=== PATIENT | female | born 2000 | race Caucasian/White ===

== ENCOUNTER 2023-12-04 02:46 | Emergency (ER) | payer OTHER ==
--- OUTSIDE RECORDS SUMMARY | 2023-12-04 02:51 | XMS REPORT | Continuity of Care Document ---
Author Name Unknown Address [address] [facility] [address] [place] [address] [facility] thconnect Address [address] [facility] [address] [place] [address] Care Team Providers Care Locker Operator Name Role Phone PCP, PATIENT DOES NOT HAVE A Primary Care Physic amy Unavailable SUBHASH BEY Attending Clinician Unavailable MAIDA SUBHASH KAYLEE Attending Clinician Unavailable Tarun Canales CRNA Attending Clinician + [phone] Juan Daniel Whitmore MD Attending Clinician [phone] Bernardino Kelly MD Attending Clinician + [phone] Doctor Unassigned, Perrin Attending Clinician U benailSARAH Nogueira Attending Clinician Unavailable Sarah Pennington MD Attending Clinician [phone], [facility] Attending Clinician Unavailable LAMIN ULLOA Attending Clinician Unavailable LAMIN ULLOA Attending Clinician Unavailable Ultrasound, Ang-Mfm Attending Clinician Unavaila SABINE Soni Attending Clinician Unavailable SABINE FERNANDO Attending Clinician Unavailable Sabine Fernando MD Attending Clinician [phone] Zahida Vela Attending Clinician [phone] MAIDA, SUBHASH CAM Admitting Clinician Unavailable Subhash Bey MD Admitting Clinician [phone] SARAH PENNINGTON Admitting Clinician Unavailable Sarah Pennington MD Admitting Clinician [phone] Payers Payer Name Policy Type Policy Number Effective Date Expirati on Date Source [facility] [id number] 2022 00:00:00 [facility] [id number] 2023 00:00:00 2023 00:00:00 Problems Condition Name Condition Details Condition Category Status Onset Date Resolution Date Last Treatment Date Treating Clinician Comments Source 39 weeks gestation of 39 weeks gestation of Disease Active 3-13 00:00: 00 [facility] Maternal care for decelerati ons during Maternal care for decelerati ons during Disease Active 3-13 00:00: 00 [facility] Liveborn infant, of resendiz , born in hospital by delivery Liveborn , of resendiz , born in hospital by delivery Disease Active 3-13 00:00: 00 [facility] Encounter for elective induction of labor Encounter for elective induction of labor Disease Active 3-12 00:00: 00 [facility] Positive GBS test Positive GBS test Disease Active 2-28 00:00: 00 [facility] Uterine size-date discrepanc y in third trimester Uterine size-date discrepanc y in third trimester Disease Active 1-23 00:00: 00 [facility] Excessive weight gain during in third trimester Excessive weight gain during in third trimester Disease Active 1-10 00:00: 00 [facility] Obesity (BMI 30-39.9) Obesity (BMI 30-39.9) Disease Active 2022-04 2-13 00:00: 00 [facility] Encounter for supervisio n of normal first in second trimester Encounter for supervisio n of normal first in second trimester Disease Active 2022-04 1-15 00:00: 00 [facility] High-risk in third trimester High-risk in third trimester Disease Active 2022-04 1-15 00:00: 00 [facility] 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 Disease Active 2022-04 0-19 00:00: 00 [facility] No known active problems No known active problems Disease [facility] Allergies, Adverse Reactions, Alerts Allergy Name Allergy Type Status Severity Reaction(s) Onset Date Inactive Date Treating Clinician Comments Source NO KNOWN ALLERGIE S Drug Class Active [facility] Social History Social Habit Start Date Stop Date Quantity Comments Source ASSERTION 2022-10-23 00:00:00 [facility] History of tobacco use Cigarette Smoker [facility] Exposure to SARS-CoV-2 (event) Not sure [facility] Alcohol intake 2023-08-07 00:00:00 2023-08-07 00:00:00 Ex-drinker (finding) [facility] Alcoholic beverage intake 2023-08-07 00:00:00 2023-08-07 00:00:00 Ex-drinker (finding) [facility] Cigarettes smoked current (pack per day) - Reported 2023-01-14 00:00:00 2023-01-14 00:00:00 [facility] Tobacco use and exposure 2023-01-14 00:00:00 2023-01-14 00:00:00 Smokeless tobacco non-user [facility] History of Social function 2023-01-14 00:00:00 2023-01-14 00:00:00 [facility] Cigarette pack-years 2023-01-14 00:00:00 2023-01-14 00:00:00 [facility] Sex assigned at 2001 00:00:00 2000 00:00:00 [facility] Smoking Status Start Date Stop Date Source Ex-smoker 2023-01-14 00:00:00 2023-01-14 00:00:00 [facility] Tobacco smoking consumption unknown [facility] Medications Ordered Medication Name Filled Medication Name Start Date Stop Date Current Medication? Ordering Clinician Indication Dosage Frequency Signature (SIG) Comments Components Source ibuprofen (IBU) tablet 600 mg 07-11 05:00: 00 Yes 600mg 600 mg, Oral, Q6H ABX, First dose on Sat07/12/23 at 0000, Until Discontinu ed, Routine [facility] 25/iron fum/folic/d voss (-1 ORAL) 07-10 07:42: 48 07-10 00:00 :00 No Take by mouth. [facility] acetaminoph en (TYLENOL) tablet 1,000 mg 07-10 07:00: 00 Yes 1000mg 1,000 mg, Oral, Q8HA1, First dose on Sat07/11/23 at 0200, Until Discontinu ed, Routine [facility] ketorolac (TORADOL) injection 30 mg 07-10 05:00: 00 07-11 04:59 :00 No 30mg 30 mg, Slow IV Push, Q6H ABX, 4 doses, First dose on Alanna 07/11/23 at 0000, Last dose on Sat07/11/23 at 1800, Routine [facility] vitamin w/FA tablet 07-10 00:00: 00 Yes [id number] 1{tbl} Take 1 tablet by mouth in the morning. [facility] docusate 100 mg capsule 07-10 00:00: 00 Yes [id number] 200mg Take 2 capsules by mouth once daily as needed for Constipati on. [facility] ferrous sulfate 325 mg (65 mg iron) tablet 07-10 00:00: 00 Yes [id number] 325mg Take 1 tablet by mouth in the morning. [facility] ibuprofen 600 mg tablet 07-10 00:00: 00 Yes [id number] 600mg Take 1 tablet by mouth every 6 (six) hours as needed (Pain). Take with food or milk. [facility] acetaminoph en (TYLENOL) 325 mg tablet 07-10 00:00: 00 Yes [id number] 650mg Take 2 tablets by mouth every 6 (six) hours as needed for Pain (scale 1-3) or Pain (scale 4-6). [facility] HYDROcodone -acetaminop hen 5-325 mg tablet 07-10 00:00: 00 07-18 04:59 :00 No [id number] 1{tbl} Take 1 tablet by mouth every 6 (six) hours as needed (Pain scale above 4) for up to 7 days. Do not exceed 3 grams of acetaminop hen in 24 hours. Indication s: acute pain [facility] gabapentin 300 mg capsule 07-10 00:00: 00 07-16 04:59 :00 No [id number] 300mg Take 1 capsule by mouth in the morning and 1 capsule at noon and 1 capsule in the evening. Do all this for 5 days. [facility] acetaminoph en (OFIRMEV) IV piggyback 1,000 mg 07-09 22:30: 00 07-09 23:19 :36 No 1000mg 1,000 mg, IV Piggyback, at 400 mL/hr Administer over 15 Minutes, ONCE, 1 dose, On Sat07/10/23 at 1730, Routine
Is the patient strict NPO and unable to tolerate oral medication s? Yes [facility] gabapentin (NEURONTIN) capsule 300 mg 07-09 19:00: 00 Yes 300mg 300 mg, Oral, TID, First dose on Sat07/10/23 at 1400, Until Discontinu ed, Routine [facility] lactated ringers IV infusion 1,000 mL 07-09 16:30: 00 07-09 20:55 :17 No 1000mL at 125 mL/hr, 1,000 mL, IV Infusion, ONCE, 1 dose, On Sat07/10/23 at 1130, Routine [facility] rho(D) immune globulin (RHOGAM) syringe 300 mcg 07-09 16:15: 17 Yes 300ug 300 mcg, Intramuscu lar, ONCE, For 1 dose, Conditiona l, Routine [facility] oxyCODONE immediate release tablet 5 mg 07-09 16:15: 11 Yes 5mg 5 mg, Oral, Q6HPRN, Starting on Sat07/10/23 at 1115, Until Discontinu ed, Routine, Pain (scale 7-10)
F aculty member approving Restricted medication : SUBHASH BEY [facility] diphenhydrA MINE (BENADRYL) injection 25 mg 07-09 16:15: 11 Yes 25mg 25 mg, Slow IV Push, Q6HPRN, Starting on Sat07/10/23 at 1115, Until Discontinu ed, Routine, Itching [facility] diphenhydrA MINE (BENADRYL) tablet 25 mg 07-09 16:15: 11 Yes 25mg 25 mg, Oral, Q6HPRN, Starting on Sat07/10/23 at 1115, Until Discontinu ed, Routine, Sleep, Itching [facility] ondansetron (ZOFRAN (PF)) injection 4 mg 07-09 16:15: 11 Yes 4mg 4 mg, Slow IV Push, Q8HPRN, Starting on Sat07/10/23 at 1115, Until Discontinu ed, Routine, Nausea and Vomiting (N/V) [facility] bisacodyL (DULCOLAX) suppository 10 mg 07-09 16:15: 11 Yes 10mg 10 mg, Rectal, QDAILYPRN, Starting on Sat07/10/23 at 1115, Until Discontinu ed, Routine, Constipati on [facility] simethicone (GAS RELIEF (SIMETHICON E)) chewable tablet 160 mg 07-09 16:15: 11 Yes 160mg 160 mg, Oral, PC+HSPRN, Starting on Sat07/10/23 at 1115, Until Discontinu ed, Routine, Gas [facility] docusate (COLACE) capsule 200 mg 07-09 16:15: 11 Yes 200mg 200 mg, Oral, QDAILYPRN, Starting on Sat07/10/23 at 1115, Until Discontinu ed, Routine, Constipati on [facility] magnesium hydroxide (MILK OF MAGNESIA) 400 mg/5 mL suspension 30 mL 07-09 16:15: 11 Yes 30mL 30 mL, Oral, QDAILYPRN, Starting on Sat07/10/23 at 1115, Until Discontinu ed, Routine, Constipati on [facility] lactated ringers IV infusion 1,000 mL 07-09 16:15: 11 Yes 1000mL at 125 mL/hr, 1,000 mL, IV Infusion, PRN, 1 dose, Starting on Sat07/10/23 at 1115, Until Discontinu ed, Routine [facility] mupirocin (BACTROBAN OINT) 2 % oinintment 07-09 14:45: 00 Yes [facility] acetaminoph en (OFIRMEV) IV piggyback 07-09 14:23: 00 07-09 14:52 :08 No IV Infusion, Administer over 15 Minutes, ONCE INTRA PROCEDURE, Starting on Sat07/10/23 at 0923, Until Discontinu ed, Routine, Intra-op [facility] oxytocin (PITOCIN) 30 units in NS 500 mL IV infusion 07-09 14:02: 00 07-09 14:52 :08 No IV Infusion, CONTINUOUS PRN, Starting on Sat07/10/23 at 0902, Until Discontinu ed, Routine, Intra-op [facility] ondansetron (ZOFRAN (PF)) injection 07-09 13:53: 00 07-09 14:52 :08 No Slow IV Push, ONCE INTRA PROCEDURE, Starting on Sat07/10/23 at 0853, Until Discontinu ed, Routine, Intra-op [facility] morpHINE PF (DURAMORPH- PF) injection 07-09 13:45: 00 07-09 14:52 :08 No Epidural, ONCE INTRA PROCEDURE, Starting on Sat07/10/23 at 0845, Until Discontinu ed, Routine, Intra-op [facility] bupivacaine -dextrose-w ater-pf (MARCAINE SPINAL (PF)) 0.75 % (7.5 mg/mL) injection 07-09 13:45: 00 07-09 14:52 :08 No Intraspina l, ONCE INTRA PROCEDURE, Starting on Sat07/10/23 at 0845, Until Discontinu ed, Routine, Intra-op [facility] PHENYLephri ne 1000 mcg/10 mL in 0.9% NaCl syringe 07-09 13:45: 00 07-09 14:52 :08 No Intravenou s, CONTINUOUS PRN, Starting on Sat07/10/23 at 0845, Until Discontinu ed, Routine, Intra-op [facility] lidocaine 1% (XYLOCAINE) 100 mg/10 mL (1 %) injection 07-09 13:44: 00 07-09 16:20 :32 No Infiltrati on, ONCE INTRA PROCEDURE, Starting on Sat07/10/23 at 0844, Until Sat07/10/23 at 1120, Routine, Intra-op [facility] ceFAZolin (ANCEF) injection 07-09 13:44: 00 07-09 14:52 :08 No IV Piggyback, ONCE INTRA PROCEDURE, Starting on Sat07/10/23 at 0844, Until Discontinu ed, CATE, Intra-op [facility] lactated ringers IV infusion 07-09 13:33: 00 07-09 14:52 :08 No IV Infusion, CONTINUOUS PRN, Starting on Sat07/10/23 at 0833, Until Discontinu ed, Routine, Intra-op [facility] 25/iron fum/folic/d voss (-1 ORAL) 07-09 08:40: 00 Yes Take by mouth. [facility] terbutaline (BRETHINE) injection 0.25 mg 07-09 05:00: 00 07-09 16:15 :16 No .25mg 0.25 mg, Subcutaneo us, PRN - SEE INSTRUCTIO NS, Starting on Sat07/10/23 at 0000, Until Sat07/10/23 at 1115, Routine, Surgery/Pr ocedure [facility] lactated ringers IV infusion 500 mL 07-09 04:31: 48 07-09 16:15 :15 No 500mL at 999 mL/hr, 500 mL, IV Infusion, PRN - SEE INSTRUCTIO NS, Starting on Sat07/09/23 at 2331, Until Sat07/10/23 at 1115, Routine [facility] D5W-LR IV infusion 1,000 mL 07-09 04:31: 48 07-09 16:15 :15 No 1000mL at 1-125 mL/hr, IV Infusion, TITRATE, Starting on Sat07/09/23 at 2331, Until Sat07/10/23 at 1115, Routine [facility] 25/iron fum/folic/d voss (-1 ORAL) 07-09 00:30: 50 Yes Take by mouth. [facility] 25/iron fum/folic/d voss (-1 ORAL) 3 16:53: 04 Yes Take by mouth. [facility] acyclovir 400 mg tablet 06-19 00:00: 00 07-10 00:00 :00 No [id number] 400mg Take 1 tablet by mouth in the morning and 1 tablet at noon and 1 tablet in the evening. Do all this for 20 days. [facility] ergocalcife rol, vitamin D2, (VITAMIN D ORAL) 2022-04 2 10:55: 47 Yes Take by mouth. [facility] ergocalcife rol, vitamin D2, (VITAMIN D ORAL) 2022-04 0 15:44: 07 Yes Take by mouth. [facility] azithromyci n 500 mg tablet 01-16 00:00: 00 01-17 04:59 :00 No 1000mg Take 2 tablets by mouth once now for 1 dose. [facility] 25/iron fum/folic/d voss (-1 ORAL) 9- 10:12: 54 Yes Take by mouth. [facility] No known medications No Un [facility] No known medications No Un antonio [facility] Immunizations Ordered Immunization Name Filled Immunization Name Date Status Comments Source Influenza Virus Vaccine Unknown Completed [facility] Influenza Virus Vaccine Unknown Completed [facility] Influenza Virus Vaccine Unknown Completed [facility] Influenza Virus Vaccine Unknown Completed [facility] Influenza Virus Vaccine Unknown Completed [facility] Influenza Virus Vaccine Unknown Completed [facility] Influenza Virus Vaccine Unknown Completed [facility] TDAP Unknown Completed [facility] Influenza Virus Vaccine Unknown Completed [facility] TDAP Unknown Completed [facility] Influenza Virus Vaccine Unknown Completed [facility] TDAP Unknown Completed [facility] Influenza Virus Vaccine Unknown Completed [facility] TDAP Unknown Completed [facility] Influenza Virus Vaccine Unknown Completed [facility] TDAP Unknown Completed [facility] Influenza Virus Vaccine Unknown Completed [facility] TDAP Unknown Completed [facility] Influenza Virus Vaccine Unknown Completed [facility] TDAP Unknown Completed [facility] Influenza Virus Vaccine Unknown Completed [facility] TDAP Unknown Completed [facility] Influenza Virus Vaccine Unknown Completed [facility] TDAP Unknown Completed [facility] Influenza Virus Vaccine Unknown Completed [facility] TDAP Unknown Completed [facility] Influenza Virus Vaccine Unknown Completed [facility] TDAP Unknown Completed [facility] Influenza Virus Vaccine Unknown Completed [facility] TDAP Unknown Completed [facility] Influenza Virus Vaccine Unknown Completed [facility] TDAP Unknown Completed [facility] Influenza Virus Vaccine Unknown Completed [facility] TDAP Unknown Completed [facility] Influenza Virus Vaccine Unknown Completed [facility] TDAP Unknown Completed [facility] Influenza Virus Vaccine Unknown Completed [facility] TDAP Unknown Completed [facility] Influenza Virus Vaccine Unknown Completed [facility] TDAP Unknown Completed [facility] Influenza Virus Vaccine Unknown Completed [facility] TDAP Unknown Completed [facility] Influenza Virus Vaccine Unknown Completed [facility] TDAP Unknown Completed [facility] Influenza Virus Vaccine Unknown Completed [facility] TDAP Unknown Completed [facility] Influenza Virus Vaccine Unknown Completed [facility] TDAP Unknown Completed [facility] Vital Signs Vital Name Observation Time Observation Value Comments S ource Systolic blood pressure 2023-08-07 16:08:00 109 mm[Hg] [facility] Diastolic blood pressure 2023-08-07 16:08:00 68 mm[Hg] [facility] Heart rate 2023-08-07 16:08:00 79 /min [facility] Body temperature 2023-08-07 16:08:00 36.33 Evelin [facility] Body height 2023-08-07 16:08:00 160 cm [facility] Body weight 2023-08-07 16:08:00 82.555 kg [facility] BMI 2023-08-07 16:08:00 32.24 kg/m2 [facility] Systolic blood pressure 2023-07-11 16:34:00 117 mm[Hg] [facility] Diastolic blood pressure 2023-07-11 16:34:00 65 mm[Hg] [facility] Heart rate 2023-07-11 16:34:00 69 /min [facility] Body temperature 2023-07-11 16:34:00 36.67 Evelin [facility] Respiratory rate 2023-07-11 16:34:00 18 /min [facility] Oxygen saturation in Arterial blood by Pulse oximetry 2023-07-11 16:34:00 99 /min [facility] Body height 2023-07-10 06:49:00 160 cm [facility] Body weight 2023-07-10 06:49:00 91.354 kg [facility] BMI 2023-07-10 06:49:00 35.68 kg/m2 [facility] Heart rate 2023-07-10 12:45:00 110 /min [facility] Oxygen saturation in Arterial blood by Pulse oximetry 2023-07-10 12:45:00 100 /min [facility] Systolic blood pressure 2023-07-10 12:00:00 116 mm[Hg] [facility] Diastolic blood pressure 2023-07-10 12:00:00 71 mm[Hg] [facility] Body temperature 2023-07-10 12:00:00 36.94 Evelin [facility] Respiratory rate 2023-07-10 12:00:00 16 /min [facility] Body height 2023-07-10 06:49:00 160 cm [facility] Body weight 2023-07-10 06:49:00 91.354 kg [facility] BMI 2023-07-10 06:49:00 35.68 kg/m2 [facility] Heart rate 2023-07-06 21:55:00 81 /min [facility] Oxygen saturation in Arterial blood by Pulse oximetry 2023-07-06 21:55:00 97 /min [facility] Body temperature 2023-07-06 21:50:00 36.89 Evelin [facility] Respiratory rate 2023-07-06 21:50:00 14 /min [facility] Systolic blood pressure 2023-07-06 21:00:00 120 mm[Hg] [facility] Diastolic blood pressure 2023-07-06 21:00:00 74 mm[Hg] [facility] Body height 2023-07-06 18:36:00 160 cm [facility] Body weight 2023-07-06 18:36:00 90.311 kg [facility] BMI 2023-07-06 18:36:00 35.27 kg/m2 [facility] Systolic blood pressure 2023-07-03 18:56:00 125 mm[Hg] [facility] Diastolic blood pressure 2023-07-03 18:56:00 76 mm[Hg] [facility] Heart rate 2023-07-03 18:56:00 77 /min [facility] Body temperature 2023-07-03 18:56:00 36.39 Evelin [facility] Respiratory rate 2023-07-03 18:56:00 18 /min [facility] Body height 2023-07-03 18:56:00 162.6 cm [facility] Body weight 2023-07-03 18:56:00 88.451 kg [facility] BMI 2023-07-03 18:56:00 33.47 kg/m2 [facility] Systolic blood pressure 2023-06-26 19:07:00 108 mm[Hg] [facility] Diastolic blood pressure 2023-06-26 19:07:00 69 mm[Hg] [facility] Heart rate 2023-06-26 19:07:00 82 /min [facility] Body temperature 2023-06-26 19:07:00 36.94 Evelin [facility] Respiratory rate 2023-06-26 19:07:00 17 /min [facility] Body height 2023-06-26 19:07:00 162.6 cm [facility] Body weight 2023-06-26 19:07:00 88.814 kg [facility] BMI 2023-06-26 19:07:00 33.61 kg/m2 [facility] Systolic blood pressure 2023-06-19 17:21:00 127 mm[Hg] [facility] Diastolic blood pressure 2023-06-19 17:21:00 77 mm[Hg] [facility] Heart rate 2023-06-19 17:21:00 108 /min [facility] Body temperature 2023-06-19 17:21:00 36.39 Evelin [facility] Respiratory rate 2023-06-19 17:21:00 18 /min [facility] Body height 2023-06-19 17:21:00 162.6 cm [facility] Body weight 2023-06-19 17:21:00 89.359 kg [facility] BMI 2023-06-19 17:21:00 33.81 kg/m2 [facility] Systolic blood pressure 2023-06-04 19:31:00 120 mm[Hg] [facility] Diastolic blood pressure 2023-06-04 19:31:00 70 mm[Hg] [facility] Heart rate 2023-06-04 19:31:00 83 /min [facility] Body temperature 2023-06-04 19:31:00 36.78 Evelin [facility] Respiratory rate 2023-06-04 19:31:00 18 /min [facility] Body height 2023-06-04 19:31:00 162.6 cm [facility] Body weight 2023-06-04 19:31:00 85.458 kg [facility] BMI 2023-06-04 19:31:00 32.34 kg/m2 [facility] Systolic blood pressure 2023-05-21 21:22:00 125 mm[Hg] [facility] Diastolic blood pressure 2023-05-21 21:22:00 75 mm[Hg] [facility] Heart rate 2023-05-21 21:22:00 93 /min [facility] Body temperature 2023-05-21 21:22:00 36.61 Evelin [facility] Body height 2023-05-21 21:22:00 162.6 cm [facility] Body weight 2023-05-21 21:22:00 85.095 kg [facility] BMI 2023-05-21 21:22:00 32.20 kg/m2 [facility] Oxygen saturation in Arterial blood by Pulse oximetry 2023-05-21 21:22:00 99 /min [facility] Systolic blood pressure 2023-05-08 21:24:00 122 mm[Hg] [facility] Diastolic blood pressure 2023-05-08 21:24:00 70 mm[Hg] [facility] [facility] Heart [facility] 2023-05-08 21:24:00 94 /min Unive [facility] Body temperature 2023-05-08 21:24:00 36.78 Evelin [facility] Respiratory rate 2023-05-08 21:24:00 17 /min [facility] Body height 2023-05-08 21:24:00 162.6 cm [facility] Body weight 2023-05-08 21:24:00 83.008 kg [facility] BMI 2023-05-08 21:24:00 31.41 kg/m2 [facility] Systolic blood pressure 2023-04-10 16:51:00 121 mm[Hg] [facility] Diastolic blood pressure 2023-04-10 16:51:00 71 mm[Hg] [facility] Heart rate 2023-04-10 16:51:00 77 /min Unive [facility] Body temperature 2023-04-10 16:51:00 36.39 Evelin [facility] Respiratory rate 2023-04-10 16:51:00 17 /min [facility] Body height 2023-04-10 16:51:00 162.6 cm [facility] Body weight 2023-04-10 16:51:00 80.105 kg [facility] BMI 2023-04-10 16:51:00 30.31 kg/m2 [facility] Systolic blood pressure 2023-03-13 15:28:00 110 mm[Hg] [facility] Diastolic blood pressure 2023-03-13 15:28:00 66 mm[Hg] [facility] Heart rate 2023-03-13 15:28:00 65 /min Unive [facility] Body temperature 2023-03-13 15:28:00 36.61 Evelin [facility] Respiratory rate 2023-03-13 15:28:00 17 /min [facility] Body height 2023-03-13 15:28:00 160 cm [facility] Body weight 2023-03-13 15:28:00 74.571 kg [facility] BMI 2023-03-13 15:28:00 29.12 kg/m2 [facility] Systolic blood pressure 2023-02-14 20:43:00 106 mm[Hg] [facility] Diastolic blood pressure 2023-02-14 20:43:00 66 mm[Hg] [facility] Heart rate 2023-02-14 20:43:00 69 /min Unive [facility] Body temperature 2023-02-14 20:43:00 36.72 Evelin [facility] Body height 2023-02-14 20:43:00 160 cm [facility] Body weight 2023-02-14 20:43:00 70.67 kg [facility] BMI 2023-02-14 20:43:00 27.60 kg/m2 [facility] Systolic blood pressure 2023-01-14 15:12:00 104 mm[Hg] [facility] Diastolic blood pressure 2023-01-14 15:12:00 67 mm[Hg] [facility] Heart rate 2023-01-14 15:12:00 85 /min [facility] Body temperature 2023-01-14 15:12:00 36.67 Evelin [facility] Respiratory rate 2023-01-14 15:12:00 18 /min [facility] Body height 2023-01-14 15:12:00 160 cm [facility] Body weight 2023-01-14 15:12:00 68.13 kg [facility] BMI 2023-01-14 15:12:00 26.61 kg/m2 [facility] Systolic blood pressure 2020-04-01 15:46:00 119 mm[Hg] [facility] Diastolic blood pressure 2020-04-01 15:46:00 86 mm[Hg] [facility] Heart rate 2020-04-01 15:46:00 83 /min [facility] Body temperature 2020-04-01 15:46:00 36.94 Evelin [facility] Respiratory rate 2020-04-01 15:46:00 18 /min [facility] Body weight 2020-04-01 15:46:00 79.379 kg [facility] Oxygen saturation in Arterial blood by Pulse oximetry 2020-04-01 15:46:00 99 /min [facility] Procedures Procedure Date / Time Performed Performing Clinician Source CBC WITH DIFF 2023-07-11 09:23:00 Subhash Bey [facility] CBC WITH DIFF 2023-07-11 09:23:00 Subhash Bey [facility] CENTRAL NEURAXIAL BLOCK 2023-07-10 13:45:00 Tarun Canales [facility] SECTION 2023-07-10 13:19:00 Subhash Bey [facility] SECTION 2023-07-10 13:19:00 Subhash Bey [facility] CBC WITH DIFF 2023-07-10 05:23:00 Subhash Bey [facility] HEPATITIS B SURFACE ANTIGEN 2023-07-10 05:23:00 Subhash Bey [facility] HB ABO GROUPING 2023-07-10 05:23:00 Bey, Subhash [facility] RHO (D) IMMUNE GLOBULIN 2023-07-10 05:[facility] 2023-07-10 05:23[facility]/2 [facility]-AB WITH REFLEX 2023-07-10 05:23:00 Maida [facility] CBC WITH DIFF 2023-07-10 05:23[facility]FACE ANTIGEN 2023-07-10 05:23:00 Maida [facility] HB ABO GROUPING 2023-07-10 05:23:00 Maida [facility] RHO (D) IMMUNE GLOBULIN 2023-07-10 05:23:00 [facility] - RPR 2023-07-10 05:23:00 [facility] 1/2 AG-AB WITH REFLEX 2023-07-10 05:23:00 Subhash Bey [facility] HOSPITAL ADMISSION 2023-07-09 05:01:00 Doctor Un assigned, Perrin [facility] US BIOPHYSICAL PROFILE 2023-07-06 21:10:00 Adum, Sarah Marleen [facility] ASSIGNMENT OF BENEFITS 2023-07-06 18:32:26 Docto r Unassigned, Perrin [facility] CONSENT/REFUSAL FOR DIAGNOSIS AND TREATMENT 2023-07-06 18:30:39 Doctor Unassigned, Perrin [facility] NOTICE OF PRIVACY PRACTICES 2023-07-03 19:32:42 Doctor Unassigned, Perrin [facility] NOTICE OF PRIVACY PRACTICES 2023-07-03 19:32:42 Doctor Unassigned, Perrin [facility] ASSIGNMENT OF BENEFITS 2023-07-03 19:32:27 Docto r Unassigned, Perrin [facility] ASSIGNMENT OF BENEFITS 2023-07-03 19:32:27 Docto r Unassigned, Perrin [facility] POCT URINALYSIS W/O SPECIFIC GRAVITY 2023-07-03 00:00:00 Bey, Subhash Cam [facility] POCT URINALYSIS W/O SPECIFIC GRAVITY 2023-06-26 00:00:00 MaidaSubhash Kaylee [facility] CBC WITH DIFF 2023-06-19 18:01:00 [facility] >14 W[facility] US LIMITED 2023-06-19 17:52:11 MaidaSubhash [facility] POCT URINALYSIS W/O SPECIFIC GRAVITY 2023-06-19 00:00:00 MaidaSubhash [facility] DISABILITY/FMLA 2023-06-18 06:01:00 Doctor Unass igned, Perrin [facility] POCT URINALYSIS W/O SPECIFIC GRAVITY 2023-06-04 19:34:00 MaidaSubhash [facility] SECOND AND THIRD TRIMESTER ULTRASOUND 2023-05-30 19:17:00 MaidaSubhash [facility] POCT URINALYSIS W/O SPECIFIC GRAVITY 2023-05-21 00:00:00 BeySubhash Kaylee [facility] TDAP VACCINE, >11 YRS, IM 2023-05-08 21:25:22 MaidaSubhash [facility] POCT URINALYSIS W/O SPECIFIC GRAVITY 2023-05-08 00:00:00 MaidaSubhash [facility] POCT URINALYSIS W/O SPECIFIC GRAVITY 2023-04-10 00:00:00 MaidaSubhash [facility] POCT URINALYSIS W/O SPECIFIC GRAVITY 2023-03-13 00:00:00 Maida Subhash [facility] SECOND AND THIRD TRIMESTER ULTRASOUND 2023-03-05 16:37:00 MaidaSubhash [facility] POCT URINALYSIS W/O SPECIFIC GRAVITY 2023-02-14 00:00:00 MaidaSubhash [facility] EXTERNAL PROVIDER RECORDS 2023-01-28 05:01:00 Doctor Unassigned, Perrin [facility] <14 WEEKS US LIMITED 2023-01-14 17:44:19 Maida Subhash [facility] ASSIGNMENT OF BENEFITS 2023-01-14 14:56:46 Docto r Unassigned, Perrin [facility] POCT TEST 2023-01-14 00:00:00 BeySubhash [facility] XR FOOT 3+ VW RIGHT 2020-04-01 16:02:30 Myah Moyer [facility] NOTICE OF PRIVACY PRACTICES 2020-04-01 15:39:49 Doctor Unassigned, Perrin [facility] CONSENT/REFUSAL FOR DIAGNOSIS AND TREATMENT 2020-04-01 15:39:26 Doctor Unassigned, Perrin [facility] Encounters Start Date/Time End Date/Time Encounter Type Admission Type Attending [facility] Facility Care Department Encounter ID Source 2023-12-11 09:00:00 2023-12-11 09:00:00 Outpatient R SUBHASH BEY VIEN [facility] [id number] [facility] 2023-10-03 00:00:00 2023-10-03 11:30:15 Telephone Subhash Bey Kaylee [facility] 1.2.840.114 350.1.13.10 4.2.7.2.686 [id number] 134 [id number] [facility] 2023-08-07 11:00:00 2023-08-07 11:17:29 Outpatient R SUBHASH BEY [facility] [id number] [facility] 2023-08-07 11:00:00 2023-08-07 11:17:29 Routine Visit Subhash Bey Kaylee [facility] 1.2.840.114 350.1.13.10 4.2.7.2.686 [id number] 134 [id number] [facility] 2023-07-22 16:15:00 2023-07-22 16:22:21 Outpatient R BEY SUBHASH [facility] [id number] [facility] 2023-07-09 23:30:00 2023-07-11 17:55:00 Inpatient P MAIDA SUBHASH [facility] [id number] [facility] 2023-07-09 23:30:00 2023-07-11 17:55:00 Hospital Encounter Subhash Bey [facility] 1.2.840.114 350.1.13.10 4.2.7.2.686 [id number] [facility] 2023-07-11 00:00:00 2023-07-11 00:00:00 Refill Subhash Bey [facility] 1.2.840.114 350.1.13.10 4.2.7.2.686 [id number] 134 [id number] [facility] 2023-07-10 08:33:00 2023-07-10 09:52:00 Anesthesia Event Tarun Canales David K [facility] 1.2.840.114 350.1.13.10 4.2.7.2.686 [id number] [facility] 2023-07-10 08:15:00 2023-07-10 09:52:00 Surgery Subhash Bey [facility] 1.2.840.114 350.1.13.10 4.2.7.2.686 [id number] [facility] 2023-07-10 01:06:07 2023-07-10 01:06:07 Anesthesia Event Bernardino Kelly [facility] 1.2.840.114 350.1.13.10 4.2.7.2.686 [id number] [facility] 2023-07-09 00:00:00 2023-07-09 00:00:00 Orders Only Doctor Unassigned, Perrin [facility] 1.2.840.114 350.1.13.10 4.2.7.2.686 [id number] [facility] 2023-07-06 12:40:00 2023-07-06 16:11:00 Outpatient X SARAH PENNINGTON [facility] [id number] [facility] 2023-07-06 12:40:00 2023-07-06 16:11:00 Emergency Adum, Sarah Hawley [facility] 1.2.840.114 350.1.13.10 4.2.7.2.686 [id number] [facility] 2023-07-03 13:00:00 2023-07-03 13:21:46 Outpatient R SUBHASH BEY [facility] [id number] [facility] 2023-07-03 13:00:00 2023-07-03 13:21:46 [facility] 1.2.840.114 350.1.13.10 4.2.7.2.686 [id number] 134 [id number] [facility] 2023-06-26 13:15:00 2023-06-26 13:31:09 [facility] [id number] [facility] 2023-06-26 13:15:00 2023-06-26 13:31:09 Routine Visit Subhash Bey [facility] 1.2.840.114 350.1.13.10 4.2.7.2.686 [id number] [facility] 2023-06-19 13:00:00 2023-06-19 13:15:00 Wire Chief Visit 2, Adc Lab [facility]hash [facility] 1.2.840.114 350.1.13.10 4.2.7.2.686 [id number] [facility] 2023-06-19 13:00:00 2023-06-19 13:00:00 Outpatient R SUBHASH BEY [facility] [id number] [facility] 2023-06-19 11:15:00 2023-06-19 11:51:01 Routine [facility] 1.2.840.114 350.1.13.10 4.2.7.2.686 [id number] 134 [id number] [facility] 2023-06-18 00:00:00 2023-06-18 00:00:00 Orders Only Doctor Unassigned, Perrin [facility] 1.2.840.114 350.1.13.10 4.2.7.2.686 [id number] [id number] [facility] 2023-06-12 00:00:00 2023-06-12 00:00:00 Telephone [facility] 1.2.840.114 350.1.13.10 4.2.7.2.686 [id number] [facility] 2023-06-04 13:30:00 2023-06-04 13:42:29 Outpatient R SUBHASH BEY [facility] [id number] [facility] 2023-06-04 13:30:00 2023-06-04 13:42:29 Routine Visit Subhash Bey [facility] 1.2.840.114 350.1.13.10 4.2.7.2.686 [id number] [facility] 2023-05-30 13:00:00 2023-05-30 13:15:37 Outpatient P LAMIN ULLOA COREY [facility] [id number] [facility] 2023-05-30 13:00:00 2023-05-30 13:15:37 Wire Chief Visit Ultrasound, Moshe-Lamin Singer [facility] 1.2.840.114 350.1.13.10 4.2.7.2.686 [id number] [facility] 2023-05-21 15:30:00 2023-05-21 15:39:18 Outpatient R SUBHASH BEY [facility] [id number] [facility] 2023-05-21 15:30:00 2023-05-21 15:39:18 Routine Visit Subhash Bey [facility] 1.2.840.114 350.1.13.10 4.2.7.2.686 [id number] 134 [id number] [facility] 2023-05-08 15:45:00 2023-05-08 15:45:40 Outpatient R SUBHASH BEY [facility] [id number] [facility] 2023-05-08 15:45:00 2023-05-08 15:45:40 [facility] 1.2.840.114 350.1.13.10 4.2.7.2.686 [id number] 134 [id number] [facility] 2023-04-10 11:15:00 2023-04-10 11:15:00 Routine [facility] 1.2.840.114 350.1.13.10 4.2.7.2.686 [id number] 134 [id number] [facility] 2023-04-10 11:15:00 2023-04-10 11:11:37 Outpatient R SUBHASH BEY [facility] [id number] [facility] 2023-04-10 09:45:00 2023-04-10 10:42:40 Wire Chief Visit 2, [facility] 1.2.840.114 350.1.13.10 4.2.7.2.686 [id number] [facility] 2023-03-13 09:30:00 2023-03-13 09:50:47 [facility] [id number] [facility] 2023-03-13 09:30:00 2023-03-13 09:50:47 Routine Visit Subhash Bey [facility] 1.2.840.114 350.1.13.10 4.2.7.2.686 [id number] [facility] 2023-03-05 10:15:00 2023-03-05 10:54:15 Outpatient P S[facility]INE [facility] [id number] [facility] 2023-03-05 10:15:00 2023-03-05 10:54:15 Wire Chief Visit Ultrasound, [facility] 1.2.840.114 350.1.13.10 4.2.7.2.686 [id number] [facility] 2023-02-14 16:15:00 2023-02-14 16:30:00 Wire Chief Visit 2, Adc Lab Subhash Bey [facility] 1.2.840.114 350.1.13.10 4.2.7.2.686 [id number] [facility] 2023-02-14 16:00:00 2023-02-14 16:04:22 Outpatient R SUBHASH BEY [facility] [id number] [facility] 2023-02-14 16:00:00 2023-02-14 16:04:22 Routine Visit Subhash Bey [facility] 1.2.840.114 350.1.13.10 4.2.7.2.686 [id number] [facility] 2023-02-11 11:15:00 2023-02-11 11:15:00 Outpatient R SUBHASH BEY [facility] [id number] [facility] 2023-01-29 00:00:00 2023-01-29 00:00:00 Telephone Subhash Bey [facility] 1.2.840.114 350.1.13.10 4.2.7.2.686 [id number] [facility] 2023-01-28 00:00:00 2023-01-28 00:00:00 Orders Only Doctor Unassigned, Perrin [facility] 1.2.840.114 350.1.13.10 4.2.7.2.686 [id number] [facility] 2023-01-21 00:00:00 2023-01-21 00:00:00 Telephone BeySubhash [facility] 1.2.840.114 350.1.13.10 4.2.7.2.686 [id number] 134 [id number] [facility] 2023-01-16 00:00:00 2023-01-16 00:00:00 Case Management Subhash Bey [facility] 1.2.840.114 350.1.13.10 4.2.7.2.686 [id number] [facility] 2023-01-15 00:00:00 2023-01-15 00:00:00 Telephone Subhash Bey [facility] 1.2.840.114 350.1.13.10 4.2.7.2.686 [id number] 134 [id number] [facility] 2023-01-14 11:15:00 2023-01-14 11:30:00 Wire Chief Visit 2, Adc Lab Maida Subhash [facility] 1.2.840.114 350.1.13.10 4.2.7.2.686 [id number] [facility] 2023-01-14 10:00:00 2023-01-14 10:53:58 Outpatient R SUBHASH BEY [facility] [id number] [facility] 2023-01-14 10:00:00 2023-01-14 10:53:58 [facility] 1.2840.114 350.1.13.10 4.2.7.2.686 [id number] 134 [id number] [facility] 2023-01-14 00:00:00 2023-01-14 00:00:00 Orders Only Doctor Unassigned, Perrin [facility] 1.2840.114 350.1.13.10 4.2.7.2.686 [id number] [facility] 2020-04-01 09:49:00 2020-04-01 11:43:00 Emergency Zahida Foster S [facility] 1.2.840.114 350.1.13.10 4.2.7.2.686 [id number] [facility] 2020-04-01 09:40:00 2020-04-01 09:40:00 Emergency X [facility] ERT [id number] [facility] 2020-04-01 00:00:00 2020-04-01 00:00:00 Orders Only Doctor Unassigned, Perrin [facility] 1.2840.114 350.1.13.10 4.2.7.2.686 [id number] [facility] Results Test Description Test Time Test Comments Results Result Co mments Source [facility] I[facility] [id number] 16:55:10* Test Item Value Reference Range Interpretation Comme nts RHIG CANDIDATE? (test code = 5188) No- see comment Patient is not a candidate for RhIg- Patient is Rh Positive.Performed at [facility] Laboratory Services - ADC Blood [address] [place] [address]Ssmy Free: [phone] No. [id number] [facility] [id number] 13:45:00 Tarun Canales CRNA ? ? 07/10/2023 ?9:09 AM Central Neuraxial Block Date/Time: 07/10/2023 8:45 AMPerformed by: Tarun Canales CRNAAuthorized by: Juan Daniel Whitmore MD ?Patient Location: ORReason for Block: OB request, Patient request and Surgical anesthesiaStaff: ?Anesthesiologist: Juan Daniel Whitmore MD ?Resident/ELECTORATE OFFICER: Conchita Armstrong CRNA ?Performed by: anesthesiologist and resident/CRNAPreanesthetic Checklist: patient identified, risks and benefits explained, monitors and equipment checked,timeout performed, pre-op evaluation, anesthesia consent, IV checked, surgical consent, site marked, ob/surgical consent approval and ob/surgical consent verifiedProcedure: ?Type of Neuraxial: SingleShot and Spinal ? Sterility Prep cap, drape, gloves, gown, hand hygiene and mask ? ?Sedation Level no sedation ?Prep: Betadine and patient draped ? ?Monitoring: heart rate, eligibility technician / EKG, continuous pulse ox, heart rate / toco and NIBP ?Location: lumbar (1-5) ?Lumbar: L1-L2 ?Approach:midline ? ?Technique: single shot ?Guidance with: landmark technique}Epidural/Spinal Tatums and/orCatheter: ?Epidural/Spinal Kit: BBraun ?Needle Type: Khadar ?Needle Gauge: 25 G ?Needle Length: 3.5 in (8.89 cm) ?Needle Insertion Depth: 5 ?Catheter Type: none ?Number of Attempts: 1 ?Test Dose: no test doseAssessment: ?Sensory Level: above T10 ?Thoracic: T10 ?Block Outcome: successful block ? ?P rocedure Assessment: patient tolerated procedure well with no complicationsNotes: ? Smooth and atraumatic, (+) Local, (+) [facility] Surface [id number] 10:53:49* Test Item Value Reference Range Interpretation Comme nts HBsAg Semi-Quantitative (darryl t code = 5195-3) 0.05 Negative [facility] B Surface [id number] 10:53:49 * Test Item Value Reference Range Interpretation Comme nts HBsAg Semi-Quantitative (darryl t code = 5195-3) 0.[address] [facility] 1/2 Ag-Ab with [id number] 08:47:14* Test Item Value Reference Range Interpretation Comme nts HIV Semi-quantitative (test code = 55921-6) 0.12 Negative CHITRA (test code = CHITRA) Non-reactive for HIV-1 antigen and HIV-1/HIV-2 antibodies. ?No laboratory evidence of HIV infection. ?Repeat in 2-4 weeks if acute HIV infection is suspected. [facility] 1/2 Ag-Ab with [id number] 08:47:14* Test Item Value Reference Range Interpretation Comme nts HIV Semi-quantitative (test code = 89218-6) 0.12 Negative CHITRA (test code = CHITRA) Non-reactive for HIV-1 antigen and HIV-1/HIV-2 antibodies. ?No laboratory evidence of HIV infection. ?Repeat in 2-4 weeks if acute HIV infection is suspected. [facility] OR PASTOR ONLY - [id number] 06:24:08* Test Item Value Reference Range Interpretation Comme nts RPR (Qualitative) (test code = 13840-0) Nonreactive Nonreactive Lab Interpretation (test cod e = 76788-8) Normal [facility] OR PASTOR ONLY - [id number] 06:24:08* Test Item Value Reference Range Interpretation Comme nts RPR (Qualitative) (test code = 02880-7) Nonreactive Nonreactive Lab Interpretation (test cod e = 47521-2) Normal [facility] with [id number] 06:05:00* Test Item Value Reference Range Interpretation Comme nts WBC (test code = 6690-2) 9.47 4.30-11.10 RBC (test code = 789-8) 4.29 3.93-5.25 HGB (test code = 718-7) 13.1 g/dL 11.6-15.0 HCT (test code = 4544-3) 39.9 % 35.7-45.2 MCV (test code = 787-2) 93.0 fL 80.6-95.5 MCH (test code = 785-6) 30.5 pg 25.9-32.8 MCHC (test code = 786-4) 32.8 g/dL 31.6-35.1 RDW-SD (test code = 06811-7) 44.8 fL 39.0-49.9 RDW-CV (test code = 788-0) 13.2 % 12.0-15.5 PLT (test code = 777-3) 221 166-358 MPV (test code = 77488-0) 12.0 fL 9.5-12.9 NRBC/100 WBC (test code = 5214671546) 0.0 0.0-10.0 NRBC x10^3 (test code = 8885771886) See_Comment [Automated me ssage] The system which generated this result transmitted reference range: 10*3/?L. The reference range was not used to interpret this result as normal/abnormal. GRAN MAT (NEUT) % (test code = 770-8) 64.0 % IMM GRAN % (test code = 3823445998) 0.60 % LYMPH % (test code = 736-9) 24.5 % MONO % (test code = 5905-5) 9.7 % EOS % (test code = 713-8) 1.0 % BASO % (test code = 706-2) 0.2 % GRAN MAT x10^3(ANC) (test code = 3080985889) 6.06 10*3/uL 1.88-7.09 IMM GRAN x10^3 (test code = 0582118990) 0.06 10*3/uL 0.00-0.06 LYMPH x10^3 (test code = 731-0) 2.32 10*3/uL 1.32-3.29 MONO x10^3 (test code = 742-7) 0.92 10*3/uL 0.33-0.92 EOS x10^3 (test code = 711-2) 0.09 10*3/uL 0.03-0.39 BASO x10^3 (test code = 704-7) 0.01-0.07 [facility] with [id number] 06:05:00* Test Item Value Reference Range Interpretation Comme nts WBC (test code = 6690-2) 9.47 4.30-11.10 RBC (test code = 789-8) 4.29 3.93-5.25 HGB (test code = 718-7) 13.1 g/dL 11.6-15.0 HCT (test code = 4544-3) 39.9 % 35.7-45.2 MCV (test code = 787-2) 93.0 fL 80.6-95.5 MCH (test code = 785-6) 30.5 pg 25.9-32.8 MCHC (test code = 786-4) 32.8 g/dL 31.6-35.1 RDW-SD (test code = 99477-4) 44.8 fL 39.0-49.9 RDW-CV (test code = 788-0) 13.2 % 12.0-15.5 PLT (test code = 777-3) 221 166-358 MPV (test code = 33105-2) 12.0 fL 9.5-12.9 NRBC/100 WBC (test code = 0509344938) 0.0 0.0-10.0 NRBC x10^3 (test code = 6848955236) See_Comment [Automated me ssage] The system which generated this result transmitted reference range: 10*3/?L. The reference range was not used to interpret this result as normal/abnormal. GRAN MAT (NEUT) % (test code = 770-8) 64.0 % IMM GRAN % (test code = 8476019649) 0.60 % LYMPH % (test code = 736-9) 24.5 % MONO % (test code = 5905-5) 9.7 % EOS % (test code = 713-8) 1.0 % BASO % (test code = 706-2) 0.2 % GRAN MAT x10^3(ANC) (test code = 7008824128) 6.06 10*3/uL 1.88-7.09 IMM GRAN x10^3 (test code = 9838658915) 0.06 10*3/uL 0.00-0.06 LYMPH x10^3 (test code = 731-0) 2.32 10*3/uL 1.32-3.29 MONO x10^3 (test code = 742-7) 0.92 10*3/uL 0.33-0.92 EOS x10^3 (test code = 711-2) 0.09 10*3/uL 0.03-0.39 BASO x10^3 (test code = 704-7) 0.01-0.07 [facility] [id number] 06:00:00 * Test Item Value Reference Range Interpretation Comme nts ABO & RH (test code = 20) A POSITIVE IAT (test code = 1185) Negative [facility] [id number] 06:00:00 * Test Item Value Reference Range Interpretation Comme nts ABO & RH (test code = 20) A POSITIVE IAT (test code = 1185) Negative [facility] [id number] 21:41:54Exam: US BIOPHYSICAL PROFILE Indication: Decreased movement ? Comparison: None. RL: [id number] Ordering Clinician: SARAH PENNINGTON Technique: Transabdominal pelvic ultrasound imaging was performed. Technical Quality: Adequate Discussion:The biophysical profile is 8 out of 8 with normal movement, tone, andbreathing.The amniotic fluid index is normal at 20.3 cm. Cephalic presentationAnterior fundal placenta.[facility] [id number] 19:07:00* Test Item Value Reference Range Interpretation Comme nts POCT PH U (test code = 3254) n/a 5-8 POCT U LEUK EST (test code = 3263) n/a Negative - N egative POCT U NIT (test code = 3262) n/a Negative - Negati ve POCT U PROT (test code = 3259) neg Negative - Negat jennifer POCT U GLU (test code = 3256) neg Negative - Negati ve POCT U KETONE (test code = 3258) n/a Negative - Neg ative POCT U BLD (test code = 3257) n/a Negative - Negati ve [facility]o Specific [id number] 19:07:00* Test Item Value Reference Range Interpretation Comme nts POCT PH U (test code = 3254) n/a 5-8 POCT U LEUK EST (test code = 3263) n/a Negative - N egative POCT U NIT (test code = 3262) n/a Negative - Negati ve POCT U PROT (test code = 3259) trace Negative - Negat jennifer POCT U GLU (test code = 3256) 1000 Negative - Negati ve POCT U KETONE (test code = 3258) n/a Negative - Neg ative POCT U BLD (test code = 3257) n/a Negative - Negati ve [facility] Urinalysis w/o Specific [id number] 17:22:00* Test Item Value Reference Range Interpretation Comme nts POCT PH U (test code = 3254) n/a 5-8 POCT U LEUK EST (test code = 3263) n/a Negative - Negative POCT U NIT (test code = 3262) n/a Negative - Negati ve POCT U PROT (test code = 3259) Negative Negative - Negat jennifer POCT U GLU (test code = 3256) 250 Negative - Negati ve POCT U KETONE (test code = 3258) n/a Negative - Neg ative POCT U BLD (test code = 3257) n/a Negative - Negati ve [facility] Urinalysis w/o Specific [id number] 19:34:00* Test Item Value Reference Range Interpretation Comme nts POCT PH U (test code = 3254) na 5-8 POCT U LEUK EST (test code = 3263) na Negative - Negative POCT U NIT (test code = 3262) na Negative - Negative POCT U PROT (test code = 3259) negative Negative - Negative POCT U GLU (test code = 3256) 50 Negative - Negative POCT U KETONE (test code = 3258) negative Negative - Negative POCT U BLD (test code = 3257) negative Negative - Negative CHITRA (test code = CHITRA) accurate developme nt and interpretation of all internal controls Lab Interpretation (test code = 02681-7) Abnormal [facility] Urinalysis w/o Specific [id number] 21:20:00* Test Item Value Reference Range Interpretation Comme nts POCT PH U (test code = 3254) n/a 5-8 POCT U LEUK EST (test code = 3263) n/a Negative - Negative POCT U NIT (test code = 3262) n/a Negative - Negati ve POCT U PROT (test code = 3259) negative Negative - Negat jennifer POCT U GLU (test code = 3256) 100 Negative - Negati ve POCT U KETONE (test code = 3258) n/a Negative - Neg ative POCT U BLD (test code = 3257) n/a Negative - Negati ve [facility] Urinalysis w/o Specific [id number] 21:22:00* Test Item Value Reference Range Interpretation Comme nts POCT PH U (test code = 3254) n/a 5-8 POCT U LEUK EST (test code = 3263) n/a Negative - Negative POCT U NIT (test code = 3262) n/a Negative - Negati ve POCT U PROT (test code = 3259) negative Negative - Negat jennifer POCT U GLU (test code = 3256) 250 Negative - Negati ve POCT U KETONE (test code = 3258) n/a Negative - Neg ative POCT U BLD (test code = 3257) n/a Negative - Negati ve [facility] Urinalysis w/o Specific [id number] 16:48:00* Test Item Value Reference Range Interpretation Comme nts POCT PH U (test code = 3254) n/a 5-8 POCT U LEUK EST (test code = 3263) n/a Negative - Negative POCT U NIT (test code = 3262) n/a Negative - Negati ve POCT U PROT (test code = 3259) negative Negative - Negat jennifer POCT U GLU (test code = 3256) 100 Negative - Negati ve POCT U KETONE (test code = 3258) n/a Negative - Neg ative POCT U BLD (test code = 3257) n/a Negative - Negati ve [facility] URINALYSIS W/O SPECIFIC [id number] 15:26:00* Test Item Value Reference Range Interpretation Comme nts POCT PH U (test code = 3254) n/a 5-8 POCT U LEUK EST (test code = 3263) n/a Negative - Negative POCT U NIT (test code = 3262) n/a Negative - Negati ve POCT U PROT (test code = 3259) negative Negative - Negat jennifer POCT U GLU (test code = 3256) normal Negative - Negati ve POCT U KETONE (test code = 3258) n/a Negative - Neg ative POCT U BLD (test code = 3257) n/a Negative - Negati ve [facility] W/O SPECIFIC [id number] 20:41:00* Test Item Value Reference Range Interpretation Comme nts POCT PH U (test code = 3254) n/a 5-8 POCT U LEUK EST (test code = 3263) n/a Negative - Negative POCT U NIT (test code = 3262) n/a Negative - Negati ve POCT U PROT (test code = 3259) Negative Negative - Negat jennifer POCT U GLU (test code = 3256) Normal Negative - Negati ve POCT U KETONE (test code = 3258) n/a Negative - Neg ative POCT U BLD (test code = 3257) n/a Negative - Negati ve [facility] [id number] 15:13:00* Test Item Value Reference Range Interpretation Comme nts POCT PREG (test code = 1605) Positive On board controls acceptable with C Line (test code = 3574) Yes POCT PREG LOT # (test code = 3575) POCT PREG TEST DATE ( test code = 3576) [facility] [id number] 16:54:08Second toe fracture. Preliminary Report Dictated by Resident: Earnestine Villafana I, Berry Wright MD., have reviewed this study and agree with the abovereport.EXAM: XR FOOT 3+ VW RIGHT HISTORY: injury COMPARISON: None FINDINGS: Radiographs of the right foot a spiral, nondisplaced fracture of the mid D3nujzosk of the second toe. There is moderate overlying soft tissueswelling. The joint spaces are main tained. [facility], Radiant Results Inft User - 04/01/2020 10:55 AM CSTEXAM: XR FOOT 3+ VW RIGHTHISTORY: injury COMPARISON: NoneFINDINGS:Radiographs of the right foot a spiral, nondisplaced fracture of themid R9zluhlml of the second toe. There is moderate overlying soft tissueswelling. The joint spaces are maintained.IMPRESSIONSecond toe fracture.Preliminary Report Dictated by Resident: Earnestine Pham,Berry Wright MD., have reviewed this study and agree with the abovereport.[facility] History and Physical Notes Date/Time Note Provider Source 2023-07-10 07:25:18 TRIAGE HISTORY & PHYSICAL IDENTIFYING DATA Nabor Darden is 23 year old, /White, 39w1d, female with ALTAGRACIA 07/16/2023, Date entered prior to episode creation. : 2000 Primary Care Physician: PATIENT DOES NOT HAVE A PCP CHIEF COMPLAINT Induction at 39 wks HISTORY OF PRESENT ILLNESS Naobr Darden is a 23 year old female @ 39w1d +FM. No VB, LOF, or CTX. No pre-eclampsia sx or other complaints. PAST OBSTETRIC HISTORY OB History Para Term AB Living 2 1 SAB IAB Ectopic Multiple Live Births 1 # Outcome Date GA Lbr Maikel/2nd Weight Sex Delivery Anes PTL Lv 2 Current 1 Ectopic PAST MEDICAL HISTORY Problem list: Patient Active Problem List Diagnosis Date Noted 39 weeks gestation of 07/10/2023 Maternal care for decelerations during 07/10/2023 Encounter for elective induction of labor 07/09/2023 Positive GBS test 06/26/2023 Excessive weight gain during in third trimester 05/08/2023 Obesity (BMI 30-39.9) 04/10/2023 High-risk in third trimester 03/13/2023 Positive test for herpes simplex virus (HSV) antibody 02/14/2023 Operations: Past Surgical History: Procedure Laterality Date SPLIT THICKNESS SKIN GRAFT HARVEST AND PLACEMENT Left 2012 left arm skin graft Past Medical History: Diagnosis Date Congenital deformity of left upper extremity CURRENT HEALTH STATUS Medications: Current Facility-Administered Medications Medication Dose Route Frequency Last Rate Last Admin carboprost (HEMABATE) injection 250 mcg 250 mcg Intramuscular Q2HPRN D5W-LR IV infusion 1,000 mL 1,000 mL IV Infusion TITRATE 125 mL/hr at 07/10/23 011 1,000 mL at 07/10/23 011 FENTanyl PF (SUBLIMAZE (PF)) injection 100 mcg 100 mcg Slow IV Push Q1HPRN lactated ringers IV infusion 500 mL 500 mL IV Infusion PRN - SEE INSTRUCTIONS 999 mL/hr at 07/10/23 0050 500 mL at 07/10/23 0050 lidocaine 1% (PF) (XYLOCAINE) injection 0.3 mL 0.3 mL Infiltration PRN - SEE INSTRUCTIONS lidocaine 1% (XYLOCAINE) 10 mg/mL (1 %) injection 50 mL 50 mL Infiltration PRN - SEE INSTRUCTIONS methylergonovine (METHERGINE) injection 0.2 mg 0.2 mg Intramuscular Q4HPRN misoprostol (CYTOTEC) quarter-tablet 25 mcg 25 mcg Vaginal Q4H misoprostol (CYTOTEC) quarter-tablet 25 mcg 25 mcg Oral ONCE miSOPROStoL (CYTOTEC) tablet 200 mcg 200 mcg Rectal PRN oxytocin (PITOCIN) 30 units in NS 500 mL IV infusion 600 mL/hr IV Infusion PRN penicillin g potassium 5 Million Units in NaCl 0.9% (NS) 100 mL MINI-BAG 5 Million Units IV Piggyback ONCE Held at 07/09/23 2345 Followed by penicillin GK 3 million units in NS 50 mL IV infusion (CNR) 3 Million Units IV Piggyback Q4H ABX proMETHazine (PHENERGAN) 25 mg in NS 50 mL IV piggyback (CNR) 25 mg IV Piggyback Q4HPRN sodium citrate-citric acid (BICITRA) 500-334 mg/5 mL solution 30 mL 30 mL Oral PRE-PROCEDURE ONCE terbutaline (BRETHINE) injection 0.25 mg 0.25 mg Subcutaneous PRN - SEE INSTRUCTIONS 0.25 mg at 07/10/23 0007 tranexamic acid (CYKLOKAPRON) 1,000 mg in NaCl 0.9% (NS) 250 mL piggyback 1,000 mg IV Piggyback PRN Allergies and drug reactions: Patient has no known allergies. HOME MEDICATIONS Medications Prior to Admission Medication Sig Dispense Refill Last Dose ergocalciferol, vitamin D2, (VITAMIN D ORAL) Take by mouth. 07/09/2023 25/iron fum/folic/dha (-1 ORAL) Take by mouth. 07/09/2023 [] acyclovir 400 mg tablet Take 1 tablet by mouth in the morning and 1 tablet at noon and 1 tablet in the evening. Do all this for 20 days. 60 tablet 0 07/09/2023 SOCIAL HISTORY Tobacco History: Social History Tobacco Use Smoking Status Former Packs/day: .25 Types: Cigarettes Start date: 2015 Passive exposure: Never Smokeless Tobacco Never Drug History: Social History Substance and Sexual Activity Drug Use Not Currently Types: Marijuana Comment: stopped once she found out she was Alcohol History: Social History Substance and Sexual Activity Alcohol Use Not Currently FAMILY HISTORY No family history on file. REVIEW OF SYSTEMS General: negative Constitutional: negative Eyes: negative ENT/Mouth: negative Cardiovascular: negative Respiratory: negative Gastrointestinal:negative Genitourinary: negative Musculoskeletal: negative Skin/breast: negative Neurological: negative Psychiatric: negative Endocrine: negative Hemat/Lymph: negative Allergic/Immuno:none VITAL SIGNS BP: (123-138)/(62-84) Temp: [36.8 ?C (98.2 ?F)] Temp source: Oral (07/09 0028) Pulse: [97-123] Resp: [16] SpO2: [98 %-99 %] Height: [160 cm (5' 3")] Weight: [91.4 kg (201 lb 6.4 oz)] BMI (calculated): [35.68] PHYSICAL EXAMINATIONS Gen: alert and oriented, well appearing, no distress CV: RRR, normal S1/S2, no m/r/g Resp: normal work of breathing, lungs CTAB Abd: gravid, soft, NTTP Ext: no calf tenderness or edema : SVE ft/th/high REVIEW OF LABORATORY, PATHOLOGY, AND RADIOLOGY DATA Lab results: Type & Screen HIV Hep B Syphilis Chlamydia ABO & RH Date Value Ref Range Status 07/10/2023 A POSITIVE Final No results found for: "HIVMULTIPLEX" No components found for: "HBSHBSAG" No results found for: "SYPIGG" C. trachomatis Nucleic Acid Date Value Ref Range Status 06/19/2023 Negative Negative Final IAT Date Value Ref Range Status 07/10/2023 Negative Final Varicella Rubella Glucose Group B Strep CBC VZV IgG antibody Date Value Ref Range Status 01/14/2023 Positive Negative Final Rubella screen IgG Date Value Ref Range Status 01/14/2023 Positive Negative Final GLUC 1 HR Date Value Ref Range Status 04/10/2023 102 (L) 120 - 170 mg/dL Final No results found for: "CGBS" HGB Date Value Ref Range Status 07/10/2023 13.1 11.6 - 15.0 g/dL Final HCT Date Value Ref Range Status 07/10/2023 39.9 35.7 - 45.2 % Final PLT Date Value Ref Range Status 07/10/2023 221 166 - 358 10*3/?L Final Active Hospital Problems Diagnosis Date Noted 39 weeks gestation of 07/10/2023 Maternal care for decelerations during 07/10/2023 Encounter for elective induction of labor 07/09/2023 Positive GBS test 06/26/2023 Excessive weight gain during in third trimester 05/08/2023 Obesity (BMI 30-39.9) 04/10/2023 High-risk in third trimester 03/13/2023 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 Present on Admission: Encounter for elective induction of labor Excessive weight gain during in third trimester High-risk in third trimester Obesity (BMI 30-39.9) Positive GBS test Positive test for herpes simplex virus (HSV) antibody ASSESSMENT AND PLAN Nabor Darden is a 23 year old female @ 39w1d here for an elective induction. deceleration - Patient on monitor at 11:44 pm. Patient had a prolonged decel from baseline of 145 down to 90s x 7-9 minutes. Received terb and IVF bolus. Another subtle decel from baseline 130s down to 120s for 2.5 minutes. Intermittent variable decels noted. - Discussed findings with patient and FOB. SVE ft/th/high. Given remote from delivery and Cat II strip, recommend primary CD and not to proceed with induction. Risks/benefits discussed and patient and FOB agreed with proceeding with CD. Body mass index is 35.68 kg/m?. PVT of Dr. Bey, please see OB Summary for more details Subhash Bey MD 07/10/2023 7:[address] Bey, please see OB Summary for more details Subhash Bey MD 07/10/2023 7:49 AM [facility] - [facility] Procedure Notes Date/Time Note Provider Source 2023-07-10 09:06:37 Associated Order(s): Central Neuraxial Block Central Neuraxial Block Date/Time: 07/10/2023 8:45 AM Performed by: Tarun Canales CRNA Authorized by: Juan Daniel Whitmore MD Patient Location: OR Reason for Block: OB request, Patient request and Surgical anesthesia Staff: Anesthesiologist: Juan Daniel Whitmore MD Resident/ELECTORATE OFFICER: Conchita Armstrong CRNA Performed by: anesthesiologist and resident/ELECTORATE OFFICER Preanesthetic Checklist: patient identified, risks and benefits explained, monitors and equipment checked, timeout performed, pre-op evaluation, anesthesia consent, IV checked, surgical consent, site marked, ob/surgical consent approval and ob/surgical consent verified Procedure: Type of Neuraxial: Single Shot and Spinal Sterility Prep cap, drape, gloves, gown, hand hygiene and mask Sedation Level no sedation Prep: Betadine and patient draped Monitoring: heart rate, eligibility technician / EKG, continuous pulse ox, heart rate / toco and NIBP Location: lumbar (1-5) Lumbar: L1-L2 Approach: midline Technique: single shot Guidance with: landmark technique} Epidural/Spinal Tatums and/or Catheter: Epidural/Spinal Kit: Anthony Needle Type: Khadar Needle Gauge: 25 G Needle Length: 3.5 in (8.89 cm) Needle Insertion Depth: 5 Catheter Type: none Number of Attempts: 1 Test Dose: no test dose Assessment: Sensory Level: above T10 Thoracic: T10 Block Outcome: successful block Procedure Assessment: patient tolerated procedure well with no complications Notes: Smooth and atraumatic, (+) Local, (+) STF NACR-NURSE RADIO ELECTRONICS TECHNICIAN,CERTIFIED REGISTERED NURSE RADIO ELECTRONICS TECHNICIAN [facility] Notes Date/Time Note Provider Source 2023-10-03 11:27:47 Return to work forms received via fax. Completed and faxed back. Walker Sy RN 10/03/2023 11:28 AM Walker Sy RN [facility] 2023-07-11 10:15:00 This note was copied from a baby's chart. Evaluation Situation Follow up visit Background Baby boy is 1 days old, born weighing 3470g, and has lost -6.05% of weight. Gestational Age: 39w1d at FEEDING STATUS Exclusively MATERNAL STATUS Hand expressing Assessment & Recommendation Mom denies problems with or latching so far. Baby in the nursery for circumcision. Mom was encouraged to continue on demand when feeding cues are observed. We discussed hand expression and signs of mastitis. education provided. All questions answered. Mom does not have any other questions or concerns at this time. Mom instructed on how to contact Commissioner Of Internal Revenue for assistance with feedings or to answer questions while in the hospital. Mom verbalized understanding. Assessment (most recent) Assessment - 07/11/23 1015 General Information Visit Initial Mom's age (years) 23 years Gestational age 39 weeks 1 Parity 1 Living Children 1 Feeding plan Breast Breastfeed previously No plans As long as possible Delivery method Reason for non reassusring status Infant Oral Assessment Oral assessment No changes from previous assessment Date of 07/10/23 Time of 0901 Infant location Mother Baby Unit Breast Assessment Breast Assessment No change from previous assessment Nipple & Areola Assessment Left Areola Pliable Right Areola Pliable Left Nipple Colostrum visible;Everted Right Nipple Colostrum visible;Everted Literature Resources Resources Understanding Mother and Baby Care Education Hand expression;Benefits of breast massage and hand expression;Engorgement signs and treatment;Risks of mastitis and signs, seek medical attention immediately;How to obtain pump for after discharge Handouts given [place] Commissioner [employer] Observation Reported Position right side Football; latched effectively Mother demonstrated teach back of Breast massage and hand expression Follow up Mom will call staff Recommended Feeding Plan Recommended feeding plan On-demand , 8-12 times in 24 hours not to exceed 6 hours between feeds;Frequent jidu-bp-[id number] time with parents OTHER $ SERVICES Follow-up MARILUZ Joy, RN, IBCLC Perico Silva RN [facility] 2023-07-10 19:29:58 Problem: Pain Goal: Control of pain at or below patient's documented comfort goal Outcome: Progressing as expected Goal: Reduction in pain sensation Outcome: Progressing as expected Problem: Complications of preeclampsia/eclampsia (risk or actual) Goal: Absence of seizure activity Outcome: Progressing as expected Goal: Absence of signs and symptoms of preeclampsia Outcome: Progressing as expected Problem: Complications of hemorrhage (risk or actual) Goal: Absence of active bleeding Outcome: Progressing as expected Goal: Absence of complications Outcome: Progressing as expected Naomi Villanueva RN [facility] 2023-07-10 18:52:32 Delivery Date: 07/10/2023 Delivery Time: 9:01 AM DELIVERY BY SECTION Date of Service: : 07/10/2023 at 9:01 AM Admitted for: primary CD due to non-reassuring FHT (intermittent Cat II strip) remote from vaginal delivery, Primary Lower uterine tranverse section with no extension, no BTL, Pfannenstiel, Closed with suture, EBL 500 cc, No complications, Findings: nuchal cord x 1 Delivery Summary Sex: male Weight: 3470 g 1 Minute 5 Minute 10 Minute Totals: 9 9 Primary Indication: Nabor Darden is a 23 year old female @ 39w1d presented for elective induction. Induction was not started due to Cat II strip. SVE fingertip. Decision was made to proceed with primary CD due to non-reassuring FHT remote from delivery. The patient was taken to the operating room for a primary section due to: Nonreassuring Conditon - at 39w1d weeks. Procedures: Primary Lower uterine tranverse section with no extension Specimens Removed: Placenta Surgeon: Subhash Bey MD Report: Prophylactic antibiotic, Ancef was given before patient was taken to OR. After arrival to the operating room patient was placed in the supine position with left lateral tilt after administration of spinal anesthesia. Laparotomy A pfannenstiel incision was made through the anterior abdominal wall with #10 scalpel. The incision was extended sharply with the #10 scalpel through the subcutaneous tissue to the level of fascia. The fascia was entered sharply with a #10 scalpel (Pfannenstiel) in the midline and extended. The rectus muscles were in the midline bluntly with digits. The peritoneum was then entered bluntly. The peritoneal incision was then extended superiorly and inferiorly under direct visualization with care being taken to avoid bladder and bowel. No adhesions were noted. The peritoneal incision was enlarged bluntly by lateral traction from the surgeon's and admissions assistant's hand. Delivery A bladder flap was developed by grasping with [place] Citizen forcep and enter with Metzenbaun scissor. Then sharp and blunt dissection with Metzenbaum scissor and fingers were performed. A low transverse hysterotomy was made then with #10 scalpel and extended laterally and cephalad with fingers in a low transverse fashion with Manu Gomez technique with care being taken to avoid injury to the fetus. The amniotic (membranes) were then entered with spontaneous rupture of membrane, and the amniotic fluid was noted to be clear . The head was delivered manually without aid of vaginal hand. The head was flexed and delivered through the hysterotomy incision in a non-traumatic fashion with aid of fundal pressure applied by the assistant general manager surgeon . The body was delivered with traction on the head along with fundal pressure. After delivery of body-bulb suction was performed from oropharynx and nostril with removal of clear amniotic fluid. Fetus was delivered in cephalic presentation. With delivery the baby, no extension was noted.Delayed cord clamping was performed for 30-60 seconds. Placenta was delivered spontaneously with steady traction on cord and manual separation of placenta from uterine wall. Closure Uterine cavity was cleaned after placental delivery with lap sponge x 2. The hysterotomy was closed in one layer with stitches using 1-0 Monocryl with continuous locking stitches. Hemostasis was achieved as needed with electrocautery. The ovaries/tubes/uterine surface were evaluated. They were found to be normal. Rectus muscle was re-approximated with 2-0 Monocryl. Fascia was closed with running stitches using 0-Biosyn . Hemostasis was checked for and found to be adequate. The subcutaneous tissue was irrigated and hemostasis was achieved where needed with electrocautery. The skin was then closed with subcutaneous stitches using 3-0 Vicryl sutures. The incision was cleaned and covered with a compression bandage and the procedure considered to be complete at this time. Intraoperative Complications: None EBL: 500 Uterotonics: 30 units of pitocin mixed in 500 cc of LR Disposition: The patient tolerated the procedure well. She was recovered in the Labor and Delivery Room with routine care in stable condition, with a contracted uterus and normal transvaginal bleeding. The infant was sent to Transition Nursery. The placenta was sent to pathology. Subhash Bey MD 07/10/2023 7:04 PM [facility] 2023-07-10 18:25:16 Problem: Intrapartum process (including labor pain) Goal: Absence of or reduction of complications of labor Outcome: Resolved Goal: Able to cope with pain Outcome: Resolved Goal: Adequate to move to next level of care Outcome: Resolved Goal: Reduction in pain sensation Outcome: Resolved Problem: Pain Goal: Control of pain at or below patient's documented comfort goal Outcome: Progressing as expected Goal: Reduction in pain sensation Outcome: Progressing as expected Problem: Complications of preeclampsia/eclampsia (risk or actual) Goal: Absence of seizure activity Outcome: Progressing as expected Goal: Absence of signs and symptoms of preeclampsia Outcome: Progressing as expected Problem: Complications of hemorrhage (risk or actual) Goal: Absence of active bleeding Outcome: Progressing as expected Goal: Absence of complications Outcome: Progressing as expected [facility] Ольга Holden RN [facility] 2023-07-10 18:24:42 Problem: Intrapartum process (including labor pain) Goal: Absence of or reduction of complications of labor Outcome: Resolved Goal: Able to cope with pain Outcome: Resolved Goal: Adequate to move to next level of care Outcome: Resolved Goal: Reduction in pain sensation Outcome: Resolved [facility] 2023-07-10 14:45:00 Images from the original note were not included. This note was copied from a baby's chart. Evaluation Situation Initial visit Background Baby boy is 5 hours old, born weighing 3470g. Gestational Age: 39w1d at FEEDING STATUS Exclusively MATERNAL STATUS Hand expressing Assessment, Recommendations, Education Assisted mom with positioning and asymmetrical latch technique in the football and cross cradle hold. Initially the baby was latched shallow, but after giving more neck and back support she was able to achieve a deeper latch. The baby suckled in coordinated bursts with audible swallows but was on and off the breast frequently. I assisted mom with different position to help infant find a comfortable position for latching. Encouraged mom to stimulate the baby to keep the baby engaged in feeding and actively sucking while at the breast. Mom denied nipple pain with feeding. Mom's nipple was rounded upon release. Infant was placed skin to skin with mom. education provided. All questions answered. Mom does not have any other questions or concerns at this time. Mom instructed on how to contact Commissioner Of [employer] for assistance with feedings or to answer questions while in the hospital. Mom V verbalized understanding. Assessment (most recent) Assessment - 07/10/23 1445 General Information Visit Initial Mom's age (years) 23 years Gestational age 39 weeks 1 Parity 1 Living Children 1 Feeding plan Breast Breastfeed previously No plans As long as possible Breast Pump Needs Delivery method Reason for non reassusring status Infant Oral Assessment Oral assessment New assessment Date of 07/10/23 Time of 0901 Infant location Mother Baby Unit Chin Normal Palate assessment Normal Tongue assessment Normal Restricted tongue motion observed None Breast Assessment Breast Assessment Initial Symmetry Symmetrical Size S (AA-A) Shape Triangular Other Hypoplastic Nipple & Areola Assessment Left Areola Pliable Right Areola Pliable Left Nipple Colostrum visible;Everted Right Nipple Colostrum visible;Everted Literature Resources Resources Understanding Mother and Baby Care Education Infant hunger cues;Benefits of breastmilk;Benefits of skin to skin contact;Signs of an effective latch; stomach size;Calming techniques;2nd day/growth spurt cluster feeds;Position changes;Breaking seal;Burping Handouts given [place] Commissioner [employer] Observation Assist with latch Position right side Football; latched effectively;Audible swallows;Suckled in coordinated bursts;Other (comment) on and of the breast throughout feeding Position left side Football;Cross cradle;Infant latched effectively;Suckled in coordinated bursts;Audible swallows;Other (comment) on and off the breast throughout the feeding Interventions Placed skin to skin;Breast massage Mother demonstrated teach back of Positioning and latching infant at breast Follow up Mom will call staff;Follow up in hospital Recommended Feeding Plan Recommended feeding plan On-demand , 8-12 times in 24 hours not to exceed 6 hours between feeds;Frequent [id number] time with parents OTHER $ SERVICES Initial MARILUZ Joy, RN, IBCLC T [facility] 2023-07-10 11:20:41 Addendum created 07/10/23 1120 by Tarun Canales CRNA Intraprocedure Meds edited T [facility] 2023-07-10 10:01:06 Patient: Nabor Darden Procedure Summary Date: 07/10/23 Room / Location: [address] LABOR AND DELIVERY OR LOCATION Anesthesia Start: 832 Anesthesia Stop: 951 Procedure: SECTION (Abdomen) Diagnosis: (Non-reassuring status) Surgeons: Subhash Bey MD Responsible Provider: Juan Daniel Whitmore MD Anesthesia Type: Spinal ASA Status: 2 Anesthesia Type: Spinal Last vitals BP Temp Pulse Resp SpO2 There were no known notable events for this encounter. Anesthesia Post Evaluation Patient location during evaluation: bedside Patient participation: complete - patient participated Level of consciousness: awake and alert Pain score: 0 Pain management: satisfactory to patient Multimodal analgesia pain management approach Airway patency: patent Cardiovascular status: acceptable and blood pressure returned to baseline Respiratory status: acceptable Hydration status: acceptable [facility] AN-ANESTHESIOLOGY ANESTHESIOLOGIST [facility] 2023-07-10 09:03:50 Name/ MRN / Age / Gender: Nabor Darden, [id number] 23 year old female BMI: Estimated body mass index is 35.68 kg/m? as calculated from the following: Height as of this encounter: 1.6 m (5' 3"). Weight as of this encounter: 91.4 kg (201 lb 6.4 oz). Allergies: Patient has no known allergies. Last Vitals: BP Readings from Last 1 Encounters: 07/10/23 116/71 Pulse Readings from Last 1 Encounters: 07/10/23 110 SpO2 Readings from Last 1 Encounters: 07/10/23 100% Date of Surgery: 07/10/2023 Surgeon: Subhash Bey MD Procedure: SECTION (Abdomen) OR Location: [facility] LABOR AND DELIVERY OR LOCATION Anesthesia Preop Eval (physical exam) Anesthesia Preop: [id number] and Chart Review [facility] Communication: 23 y/o G1 @ 39w1d for labor consult due to prolonged decel on floor. NPO Status Not Verified (ate at 2200 07/09/2023) Not NPO-urgent/emergent surgery PONV Risk Factors: female and non-smoker PONV Risk Score: 2 Anesthesia History (-) Hx of anesthetic complications (-) Hx of PONV (-) Fam hx of anesthetic complications (-) Hx of awareness during surgery (-) Hx of malignant hyperthermia (-) Hx of difficult airway (-) Pt reports no hx of difficult airway (-) Hx of difficult IV access Previous Anesthetics/Airways Date of anesthetic: 2012 Additional Comments: No comps per patient Cardiovascular Negative Cardiac ROS Pulmonary Negative Pulmonary ROS Neuro/Musculoskeletal Comments: Congenital deformity of L upper extremity (+) Obesity (BMI=35.7) GI/Hepatic Negative GI/Hepatic ROS Hematology Negative Hematology ROS Prior Blood Transfusion: No (-) No previous positive antibody screen (-) No historical type and screen Type and Screen Ordered: Yes Patient Accepts Blood Transfusion: Yes Renal Negative Renal ROS Skin Negative Skin ROS Endo/Other Negative Endo/Other ROS Other LITERACY TUTOR P: 0 Gestational Age: 38w1d on 07/10/2023 Pediatric Pediatric N/A N/A Preoperative Medication Instructions Continue taking all prescribed medications except: FRED inhibitors, ARBs, diuretics, all oral diabetes medications Anticoagulant Therapy: Defer to surgeons Insulin: Take 1/2 dose the night prior to surgery. Hold on DOS. Phentermine: Alert [facility] anesthesiologist SGLT2 Inhibitors: "gliflozins" to be held for 3 days prior to elective surgeries GLP1 Agonosit: stop 7 days prior to surgery MAC Cases: Continue taking FRED inhibitors and ARBs ASA Classification ASA: 2 Labs: Chemistry - CBC 07/10/2023 - - - - 9.47 13.1 221 - - - 39.9 eGFR: - Date: - ANC: 6.06 Date: 07/10/2023 LFTs - Coags AST: - AP: - Prot: - Ca: - PT: - Date: - ALT: - T Curry: - Alb: - PTT: - Date: - PO4: - Date: - INR: - Date: - Cardiac Endocrine & other pBNP: - Date: - A1C: - Date: - Trop I: - Date: - TSH: - Date: - CK: - Date: - FT4: - Date: - CKMB: - Date: - Lact: - Date: - Procal: - Date: - Respiratory -|-|-|-|- D-dimer: - ABG Date: - Date: - Current Medications: Outpatient Medications Marked as Taking for the 07/09/23 encounter (Hospital Encounter) Medication Sig Dispense Refill ergocalciferol, vitamin D2, (VITAMIN D ORAL) Take by mouth. 25/iron fum/folic/dha (-1 ORAL) Take by mouth. 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 Left 2012 left arm skin graft Anesthesia Physical Exam General no apparent distress and alert and oriented x 3 Neuro/Psych nonfocal Dental no notable dental hx Abdominal (+) obesity, abdomen soft and gravid Airway Mallampati score:II TM distance:> 5 cm Neck ROM: full Mouth opening:normal Extremity Pulmonary bilateral clear to auscultation Other Numerous body piercings Cardiovascular Rhythm:regular Rate: normal Anesthesia Plan ASA Status: 2 Plan discussed during pre-op evaluation: Spinal Anesthetic plan on DOS: Spinal Plan to include: nasal cannula Anesthesia plan discussed with: patient or compliance representative dealer Post-Operative Analgesia: routine analgesia & antiemetics Recovery Plan: PACU and LDR Additional comments: T [facility] [employer] 2023-07-10 01:50:55 Pt had a prolonged deceleration. Per Maida HEATH pt is for observation over night. The induction process will be reassessed in the morning.Will continue to monitor. Leidy Dewey RN [facility] 2023-07-10 01:37:30 Pt is expectant management. Progressing towards goals as expected [facility] 2023-07-10 01:06:43 Addendum created 07/10/23 0106 by Bernardino Kelly MD Clinical Note Signed [facility] 2023-07-10 00:33:53 Name/ MRN / Age / Gender: Nabor Darden, [id number] 23 year old female BMI: Estimated body mass index is 35.68 kg/m? as calculated from the following: Height as of this encounter: 1.6 m (5' 3"). Weight as of this encounter: 91.4 kg (201 lb 6.4 oz). Allergies: Patient has no known allergies. Last Vitals: BP Readings from Last 1 Encounters: 07/10/23 138/79 Pulse Readings from Last 1 Encounters: 07/10/23 97 SpO2 Readings from Last 1 Encounters: 07/06/23 97% Date of Surgery: Surgeon: * Surgery not found * Procedure: LABOR CONSULT OR Location: * No surgery found * Anesthesia Preop Eval (physical exam) Anesthesia Preop: [id number]-Ixvr and Chart Review [facility] Communication: 23 y/o G1 @ 39w1d for labor consult due to prolonged decel on floor. NPO Status Not Verified (ate at 2200 07/09/2023) Not NPO-urgent/emergent surgery PONV Risk Factors: female and non-smoker PONV Risk Score: 2 Anesthesia History (-) Hx of anesthetic complications (-) Hx of PONV (-) Fam hx of anesthetic complications (-) Hx of awareness during surgery (-) Hx of malignant hyperthermia (-) Hx of difficult airway (-) Pt reports no hx of difficult airway (-) Hx of difficult IV access Previous Anesthetics/Airways Date of anesthetic: 2012 Additional Comments: No comps per patient Cardiovascular Negative Cardiac ROS Pulmonary Negative Pulmonary ROS Neuro/Musculoskeletal Comments: Congenital deformity of L upper extremity (+) Obesity (BMI=35.7) GI/Hepatic Negative GI/Hepatic ROS Hematology Negative Hematology ROS Prior Blood Transfusion: No (-) No previous positive antibody screen (-) No historical type and screen Type and Screen Ordered: Yes Patient Accepts Blood Transfusion: Yes Renal Negative Renal ROS Skin Negative Skin ROS Endo/Other Negative Endo/Other ROS Other LITERACY TUTOR P: 0 Gestational Age: 38w1d on 07/10/2023 Pediatric Pediatric N/A N/A Preoperative Medication Instructions Continue taking all prescribed medications except: FRED inhibitors, ARBs, diuretics, all oral diabetes medications Anticoagulant Therapy: Defer to surgeons Insulin: Take 1/2 dose the night prior to surgery. Hold on DOS. Phentermine: Alert [facility] anesthesiologist SGLT2 Inhibitors: "gliflozins" to be held for 3 days prior to elective surgeries GLP1 Agonosit: stop 7 days prior to surgery MAC Cases: Continue taking FRED inhibitors and ARBs ASA Classification ASA: 2 Labs: Chemistry - CBC 06/19/2023 - - - - 9.53 12.7 216 - - - 39.0 eGFR: - Date: - ANC: 6.91 Date: 06/19/2023 LFTs - Coags AST: - AP: - Prot: - Ca: - PT: - Date: - ALT: - T Curry: - Alb: - PTT: - Date: - PO4: - Date: - INR: - Date: - Cardiac Endocrine & other pBNP: - Date: - A1C: - Date: - Trop I: - Date: - TSH: - Date: - CK: - Date: - FT4: - Date: - CKMB: - Date: - Lact: - Date: - Procal: - Date: - Respiratory -|-|-|-|- D-dimer: - ABG Date: - Date: - Current Medications: Outpatient Medications Marked as Taking for the 07/09/23 encounter (Hospital Encounter) Medication Sig Dispense Refill ergocalciferol, vitamin D2, (VITAMIN D ORAL) Take by mouth. 25/iron fum/folic/dha (-1 ORAL) Take by mouth. 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 Left 2012 left arm skin graft Anesthesia Physical Exam General no apparent distress and alert and oriented x 3 Neuro/Psych neurological Nonfocal Dental no notable dental hx Abdominal GI exam normal (+) obesity, abdomen soft, benign and gravid Airway Mallampati score:III NECK: short Neck ROM: full Mouth opening:small (+) Normal facies < 2 FB opening Multiple plastic piercings Tongue piercing Extremity Normal extremity Pulmonary pulmonary exam normal and bilateral clear to auscultation Other Cardiovascular cardiovascular exam normalRhythm:Regular Rate: Normal (-) no murmur and peripheral edema Anesthesia Plan ASA Status: 2 Plan discussed during pre-op evaluation: General, Epidural, Spinal and CSE Anesthesia plan discussed with: patient or compliance representative dealer Post-Operative Analgesia: routine analgesia & antiemetics Recovery Plan: LDR Additional comments: T [facility] [employer] 2023-07-06 12:34:45 Patient arrived ambulatory with . 38 weeks 4 days . G1. Obmary bey. Denies contractions ro leaking fluid. Complaing of decreased movement since this morning. Last movement felt 20-30 minutes ago. [place] only 4-5 kicks since 9 am this morning. Gave report to Sophy with L&D [facility] Aliya Cohen RN [facility] 2023-07-03 13:00:00 Age: [age] year old GA: 38w1d -Doing well -Ultrasound on 05/30/23: EFW 5 lbs 4 oz (66%tile) -Desires SVE. SVE closed/thick/high. 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 SVE closed/thick/high. 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 Venipuncture collection performed by clean technique on the left anticubitus. Total of 1 attempts were made. Slight pressure and a bandage/dressing were applied to the site(s). The patient experienced no complications. The following specimens were processed according to instructions and sent to [facility] laboratories per lab order on 06/19/2023 : LT BLUE SST RED LAV 1 PPT DK GREEN (LiHep) DK GREEN (SodH) CORONADO DK BLUE (K2) DK BLUE (S) ACD Blood Culture NIPT/NTD [facility] 2023-06-19 11:15:00 Age: [age] year old GA: 36w1d -Doing well -HSV 1 IgG positive: Suppression ordered - Discussed elective induction at 39 wks versus awaiting spontaneous labor. Discussed about risks of failed induction that can lead to and risks associated with including pain, bleeding, infection, injury to surrounding organs, need for repeat with future pregnancies, risks of abnormal placentation with future pregnancies. Patient understands and desires to proceed with induction. Patient has been scheduled for induction on 07/10/2023 at 39 weeks unless clinically indicated otherwise. This reviews what Dr. Bey talked about at your 36 week talk: 1. Go to Labor and Delivery when your contractions are 5-7 minutes apart and you have been able to time them for an hour. If you live more than 30 minutes from the hospital, then go when they are 10 minutes apart and you have been able to time them for an hour. 2. BUT, there are 4 reasons to go to Labor and Delivery REGARDLESS of what else is happening, whether you are radha or not: 1. If your water breaks - - - it may be a gush or a constant trickle. If you are not sure, always come in to be checked. 2. Bleeding like your period. 3. If your baby's movements are less than 10 in an hour. If you are concerned this might be the case, drink a tall glass of cold fluids, lay down on your side on the couch or your bed and see how long it takes to note 10 movements - if less than 10, this needs to be evaluated immediately. 4. Contractions or Pain that is continuous. Normal labor contractions last only 45 seconds - 1 minute. Cephalic presentation GC/CT and GBS obtained, CBC ordered Zika precautions reviewed Contraception PP: Condoms Delivery consent signed today RTC in 1 wk for PN [facility] 2023-06-12 15:13:19 FMLA forms completed and faxed per patient request. Walker Sy RN 06/12/2023 3:13 PM ARDINO Sy RN [facility] 2023-06-04 13:30:00 Age: [age] year old GA: 34w0d -Doing well - S >> D: Appropriate interval growth on 05/30/2023 ultrasound. EFW 5 pounds 4 ounces. 66 percentile -HSV 1 IgG positive: Suppression at 35 to 36 weeks -Patient brought FMLA form today - Daily kick counts - follow-up in 2 wks for PN [facility] 2023-05-21 15:30:00 Age: [age] year old GA: 32w0d -Doing well - S >> D: growth scan ordered -HSV 1 IgG positive: Suppression at 35 to 36 weeks - excessive weight gain: TWG 37 lbs. Advise walking at least 30 minutes daily. Sensible healthy diet. - Daily kick counts - follow-up in 2 wks for PN [facility] 2023-05-08 15:45:00 Age: [age] year old GA: 30w1d -Doing well -HSV 1 IgG positive: Suppression at 35 to 36 weeks - excessive weight gain: will discuss at next visit -Received Tdap vaccine today -28-week labs and serologies within normal limits - 3rd trimester teaching done- reviewed S/S of PTL (contractions, leakage of fluid and Vaginal bleeding) and also Kick Counts. Also dicussed Hardee-Gandhi, pelvic and lower back pains- expectations and differenced with S/S of PTL She plans to breast fed BC options reviewed- opted for undecided Commercial Attorney: Dr. Teresa Encourage patient to bring in wishes if she has any. -Follow-up in 2 weeks for visit [facility] 2023-01-14 11:15:00 Formatting of this n ote might be different from the original. Pt is here to complete all labs for Subhash Bey MD . Tin Kumar 01/14/2023 11:09 AM Pt given 50g glucola at 1108 Pt completed drinking glucola at 1113 Pt will return at 1213 for blood draw. Tin Kumar 01/14/2023 11:09 AM Jam box will also need to be collected. [facility] 2023-01-14 11:15:00 Formatting of this n ote is different from the original. Images from the original note were not included. Pt is here to complete all labs for Subhash Bey MD . Tin Kumar 01/14/2023 11:09 AM Pt given 50g glucola at 1108 Pt completed drinking glucola at 1113 Pt will return at 1213 for blood draw. Pt returned at 1213 Pt has a jam box TRK #[id number] Venipuncture collection performed by clean technique on the right anticubitus. Total of 1 attempts were made. Slight pressure and a bandage/dressing were applied to the site(s). The patient experienced no complications. The following specimens were processed according to instructions and sent to [facility] laboratories per lab order on 01/14/2023 : LT BLUE SST 4 RED 1 LAV 2 PPT DK GREEN (LiHep) DK GREEN (SodH) CORONADO DK BLUE (K2) DK BLUE (S) ACD Blood Culture NIPT/NTD Jam: 1 Lav, 2 Camo [facility] - [facility] 2023-01-14 10:00:00 Formatting of this n ote might be different from the original. Age: [age] year old GA: 13w6d by Patient's last menstrual period was 10/09/2022. [facility] an [facility] at [facility] and was told that ALTAGRACIA based on ultrasound is 07/18/2023. ALTAGRACIA based on LMP is 07/16/2023. FOB: Tom[place] - Transabdominal USG for FHT: Single live IUP measured 13 2/7 weeks, consistent with LMP. Will date by Patient's last menstrual period was 10/09/2022. unless clinically indicated otherwise New OB labs today. No complaints. Discussed do's and don'ts of , safe foods, safe medications. Reviewed Zika virus precautions. I discussed the call schedule and that I might not be the physician delivering her. I discussed I deliver my patients at [facility]. Expectations for weight gain this include 15-25 pounds. Encouraged to call if have any additional questions or concerns. Discussed aneuploidy and carrier screening; patient opts for panorama/[employer]. Have not received COVID vaccines. Counseled and recommend COVID vaccines. Patient declined Discussed about COVID-19/flu precautions. Social distancing, frequent hand washings, wearing face mask, signs/symptoms for testing and to follow CDC recommendations discussed. Discussed with patient that she can have HEALTHY support with her during her delivery (which is subject to change depends on the COVID pandemic) Anatomy scan ordered Follow-up in 4 weeks for visit [facility]
--- NOTE | 2023-12-04 03:03 | EDPHYS ---
Physician Documentation [facility] Name: Nabor Darden Age: 23 yrs Sex: Female : 2000 Arrival Date: 12/04/2023 Time: 02:46 Bed 7 Private MD: ED Physician Tin Thomas HPI: 12/03 03:01 This 23 yrs old Female presents to ER via Unassigned with complaints of 4 Months post sp3 op from c section and pt states has came open some. vaughn. 03:01 23-year-old female now 4 months postop from transverse presents with sp3 "decrease in my skin opening". She denies any deeper abdominal pain, changes in bowel patterns, fever, back pain, or any other signs or symptoms on ROS at this time.. Historical: - Allergies: 03:10 SULFA SULFONAMIDE ANTIBIOTICS; ha1 - PMHx: 03:12 None; ha1 - PSHx: 03:12 ; ha1 - Immunization history:: Adult Immunizations up to date. - Infectious Disease History:: Denies. - Social history:: Smoking status: Reported history of juuling and/or vaping. ROS: 03:01 Constitutional: Negative for fever, chills, and weight loss, Eyes: Negative for injury, sp3 pain, redness, and discharge, ENT: Negative for injury, pain, and discharge, Neck: Negative for injury, pain, and swelling, Cardiovascular: Negative for chest pain, palpitations, and edema, Respiratory: Negative for shortness of breath, cough, wheezing, and pleuritic chest pain, Back: Negative for injury and pain, MS/Extremity: Negative for injury and deformity, Skin: Negative for injury, rash, and discoloration, Neuro: Negative for headache, weakness, numbness, tingling, and seizure, Psych: Negative for depression, anxiety, suicide ideation, homicidal ideation, and hallucinations, Allergy/Immunology: Negative for hives, rash, and allergies, Endocrine: Negative for neck swelling, polydipsia, polyuria, polyphagia, and marked weight changes, Hematologic/Lymphatic: Negative for swollen nodes, abnormal bleeding, and unusual bruising, 03:01 All other systems are negative, Exam: 03:01 Constitutional: This is a well developed, well nourished patient who is awake, alert, sp3 and in no acute distress. Head/Face: Normocephalic, atraumatic. Chest/axilla: Normal chest wall appearance and motion. Nontender with no deformity. No lesions are appreciated. Cardiovascular: Regular rate and rhythm with a normal S1 and S2. No gallops, murmurs, or rubs. Normal PMI, no JVD. No pulse deficits. Respiratory: Lungs have equal breath sounds bilaterally, clear to auscultation and percussion. No rales, rhonchi or wheezes noted. No increased work of breathing, no retractions or nasal flaring. Abdomen/GI: Soft, non-tender, with normal bowel sounds. No distension or tympany. No guarding or rebound. No evidence of tenderness throughout. Back: No spinal tenderness. No costovertebral tenderness. Full range of motion. 03:01 Abdomen/GI: Very mild area of redness at incision site without disruption, or infection. No drainage., Vital Signs: 02:56 BP 105 / 80; Pulse 66; Resp 18 S; Temp 98.1(O); Pulse Ox 99% on R/A; Weight 78.47 kg; ha1 Height 5 ft. 3 in. ; Pain 2/10; 02:56 Body Mass Index 30.65 (78.47 kg, 160.02 cm) ha1 02:56 Pain Scale: Adult ha1 MDM: 02:58 Patient medically screened. sp3 03:02 Data reviewed: vital signs, nurses notes. ED course: 23-year-old female with complaints sp3 of abdominal surgical site complication from prior . No significant findings on exam. Will reassure patient and recommend abdominal binder and follow back up with her wood cabinet finisher for further management as needed. No emergency exist in ED. Clinically patient has no surgical abdomen and is not septic or in shock.. Administered Medications: No medications were administered Disposition Summary: 12/04/23 03:03 Discharge Ordered Notes: Location: Home sp3 Condition: Stable sp3 Diagnosis - Abdominal surgical site skin abrasion sp3 Followup: sp3 - With: Private Physician - When: Upon discharge from the Emergency Department - Reason: Continuance of care Discharge Instructions: - Discharge Summary Sheet sp3 - Wound Care, Adult sp3 Forms: - Medication Reconciliation Form sp3 - Antibiotic Education sp3 - Prescription Opioid Use sp3 - Patient Portal Instructions sp3 - Leadership Thank You Letter sp3 - Work release form [email or web address] Signatures: Tin Thomas MD MD sp3 Selena Phelps RN RN ha1 Corrections: (The following items were deleted from the chart) 03:13 03:12 PMHx: Unable to Obtain; ha1 ha1
--- NOTE | 2023-12-04 03:16 | ER ---
Nurse's Notes [facility] Name: Nabor Darden Age: 23 yrs Sex: Female : 2000 Arrival Date: 12/04/2023 Time: 02:46 Bed 7 Private MD: Diagnosis: Abdominal surgical site skin abrasion Presentation: 12/03 02:56 Chief complaint: Patient states: I SEE A LITTLE REDNESS ON AREA WHERE MY CSECTION SCAR ha1 IS LOCATED AND I WANT TO MAKE SURE MY SCARE IS NOT OPENING. NO DRAINAGE. NO SWELLING. 02:56 Coronavirus screen: Vaccine status: Patient reports being unvaccinated. Ebola Screen: ha1 No symptoms or risks identified at this time. Initial Sepsis Screen: Does the patient meet any 2 criteria? No. Patient's initial sepsis screen is negative. Does the patient have a suspected source of infection? No. Patient's initial sepsis screen is negative. Risk Assessment: Do you want to hurt yourself or someone else? Patient reports no desire to harm self or others. Onset of symptoms was December 04, 2023. 02:56 Method Of Arrival: Ambulatory 1 02:56 Acuity: LIEN 4 ha1 Triage Assessment: 03:00 General: Appears comfortable, Behavior is calm, cooperative. Pain: Complains of pain in ha1 suprapubic area Pain does not radiate. Pain currently is 1 out of 10 on a pain scale. Quality of pain is described as aching, Pain began suddenly. Neuro: Level of Consciousness is awake, alert, obeys commands, Oriented to person, place, time, situation. Cardiovascular: Capillary refill < 3 seconds Patient's skin is warm and dry. Respiratory: Airway is patent Respiratory effort is even, unlabored, Respiratory pattern is regular, symmetrical. GI: Abdomen is round non-distended, SURGICAL SITE OF CSECTION CLEAN AND DRY, NO DRAINAGE. Bowel sounds present X 4 quads. Abd is soft and non tender. : No signs and/or symptoms were reported regarding the genitourinary system. Derm: Skin is pink, warm \T\ dry. Musculoskeletal: Circulation, motion, and sensation intact. Range of motion: intact in all extremities. Historical: - Allergies: 03:10 SULFA SULFONAMIDE ANTIBIOTICS; ha1 - PMHx: 03:12 None; ha1 - PSHx: 03:12 ; ha1 - Immunization history:: Adult Immunizations up to date. - Infectious Disease History:: Denies. - Social history:: Smoking status: Reported history of juuling and/or vaping. Screenin:00 [facility] ED Fall Risk Assessment (Adult) History of falling in the last 3 months, ha1 including since admission No falls in past 3 months (0 pts) Confusion or Disorientation No (0 pts) Intoxicated or Sedated No (0 pts) Impaired Gait No (0 pts) Mobility Assist Device Used No (0 pt) Altered Elimination No (0 pt) Score/Fall Risk Level 0 - 2 = Low Risk Oriented to surroundings, Maintained a safe environment, Educated pt \T\ family on fall prevention, incl call for assistance when getting out of bed, Hourly rounding (assess needs \T\ fall precautionary measures) done. Abuse screen: Denies threats or abuse. Denies injuries from another. Nutritional screening: No deficits noted. Tuberculosis screening: No symptoms or risk factors identified. Assessment: 03:00 Reassessment: SEE TRIAGE ASSESSMENT. ha1 Vital Signs: 02:56 BP 105 / 80; Pulse 66; Resp 18 S; Temp 98.1(O); Pulse Ox 99% on R/A; Weight 78.47 kg; ha1 Height 5 ft. 3 in. ; Pain 2/10; 02:56 Body Mass Index 30.65 (78.47 kg, 160.02 cm) ha1 02:56 Pain Scale: Adult [facility] ED Course: 02:52 Patient arrived in ED. gm2 02:56 Patient has correct armband on for positive identification. Bed in low position. Call ha1 light in reach. Side rails up X 1. 02:56 Arm band placed on right wrist. ha1 02:57 Tin Thomas MD is Attending Physician. sp3 03:10 Triage completed. ha1 03:12 Provided Education on: FOLLOW UP WITH OB . ha1 03:12 No provider procedures requiring assistance completed. ha1 03:12 Patient did not have IV access during this emergency room visit. ha1 Administered Medications: No medications were administered Medication: 03:00 VIS not applicable for this client. ha1 Outcome: 03:03 Discharge ordered by . sp3 03:16 Discharged to home ambulatory, [facility] 03:16 Condition: good 03:16 Discharge instructions given to Instructed on discharge instructions, follow up and referral plans. Demonstrated understanding of instructions, follow-up care, 03:16 Patient left the ED. [email or web address] Signatures: Tin Thomas MD MD sp3 Selena Phelps RN RN ha1 Karie Pederson 2 Coby Emerson RN RN [email or web address] Corrections: (The following items were deleted from the chart) 03:13 03:12 PMHx: Unable to Obtain; 1 [email or web address]
[2023-12-04 11:16] VITALS: BP 105/80; TEMP 98.1; O2SAT 99
== END 2023-12-04 03:16 | disposition home or self-care (01) ==
LOC: ER 02:46
DX: S30.811A Abrasion of abdominal wall, initial encounter (principal)